=== PATIENT | female | born 1975 | race Caucasian/White ===

== ENCOUNTER 2019-07-21 12:03 | Outpatient (CLI) | payer OTHER, SELFPAY ==
--- NOTE | ~2019-07-21 | MMUS_ITS ---
EXAMINATION: MM diagnostic jolly BI w wilmer, US breast BI complete HISTORY: Follow-up breast masses TECHNIQUE: Additional 3-D tomosynthesis images of the breasts were performed and synthetic 2-D images were generated. CAD analysis was submitted and interpreted. High resolution bilateral breast ultraso und was performed. COMPARISON: Comparison to multiple prior studies sequentially, with oldest reviewed study dated 01/06. FINDINGS: MAMMOGRAPHIC FINDINGS: The breasts are heterogenously dense, which may obscure small masses. Bilateral breast asymmetries ar e not significantly changed from prior examinations dating back to 2011. No new masses, calcification s or architectural distortion are identified. ULTRASOUND: Right breast ultrasound: There are multiple simple and complicated cysts of the right breast at 1:00, 6 cm from the nipple, t here is an oval circumscribed hypoechoic mass with parallel orientation measuring 5 mm. No significan t interval vascularity or posterior features. There is a cluster of microcysts at 3:00, 3 cm from the nipple measuring up to 4 mm. At 6:00, 3 cm from the nipple, there is an irregular shaped hypoechoic mass measuring 5 x 6 x 4 mm, possibly a cluster of microcysts. No internal vascularity or posterior f eatures. At 8:00, 2 cm from the nipple, there are 2 adjacent there is an irregular shaped hypoechoic mass measuring 4 x 5 x 4 mm without internal vascularity or posterior features. At 4:00, 4 cm from th e nipple, there is an oval circumscribed hypoechoic mass measuring 4 mm without internal vascularity or posterior features. Left breast ultrasound: At 2:00, 2 cm from the nipple, there is an oval hypoechoic mass without internal vascularity or poste rior features, parallel orientation. Mass measures 5 x 3 x 3 mm. At 2:00 there is a 5 mm cyst. At 9:0 0, 5 cm from the nipple, there is an oval hypoechoic mass with echogenic hilum measuring 6 mm, likely benign intramammary lymph node. At 10:00, 3 cm from the nipple, there is a hypoechoic mass with para llel orientation measuring 4 mm, likely complicated cysts. There is a cluster of microcysts at 11:00, 2 cm from the nipple. IMPRESSION: 1. Probable benign bilateral breast masses. 2. Recommend 6 month follow-up diagnostic bilateral mammogram and ultrasound. BI-RADS category 3, probably benign findings. Reviewed, dictated and finalized at location A. IMPRESSION: 1. Probable benign bilateral breast masses. 2. Recommend 6 month follow-up diagnostic bilateral mammogram and ultrasound. BI-RADS category 3, probably benign findings.
== END 2019-07-21 12:04 | disposition home or self-care (01) ==
LOC: ANHIMG 12:10
PROVIDERS: PCP Emergency Medicine; Visit Provider Emergency Medicine
DX: R92.2 Inconclusive mammogram (principal); R92.8 Other abnormal and inconclusive findings on diagnostic imaging of breast
CPT/HCPCS: 76641; 77062; 77066; G0279

== ENCOUNTER 2020-02-10 10:13 | Outpatient (CLI) | payer OTHER, SELFPAY ==
[2020-02-10 10:57] LABS: Alanine Aminotransferase 16 U/L (4-35); Albumin Level 4.3 g/dL (3.5-5.1); Alkaline Phosphatase 85 U/L (38-126); Anion Gap 10 mmol/L (8-16); Aspartate Amino Transferase 26 U/L (14-36); Bilirubin,Total 0.5 mg/dL (0.2-1.3); Blood Urea Nitrogen 14 mg/dL (7-17); Calcium 9.2 mg/dL (8.4-10.2); Carbon Dioxide 23 mmol/L (22-30); Chloride 105 mmol/L (98-107); Estimated Glomerular Filt Rate > 60; Glucose 111 mg/dL (65-105); Potassium 4.3 mmol/L (3.4-5.0); Sodium 138 mmol/L (137-145)
[2020-02-10 11:25] LABS: Iron 109 ug/dL (37-170)
[2020-02-10 11:34] LABS: Percent Iron Saturation 30 % (20-50)
[2020-02-10 12:15] LABS: Folic Acid 9.1 ng/mL (2.76->20)
[2020-02-11 09:02] LABS: Cholesterol 241 mg/dL (0-200); HDL Direct 33 mg/dL; Triglycerides 161 mg/dL (<150)
[2020-02-11 09:09] LABS: LDL Cholesterol Direct 189 mg/dL
== END 2020-02-10 10:14 | disposition home or self-care (01) ==
PROVIDERS: PCP Physician Assistant; Visit Provider Physician Assistant
DX: F31.9 Bipolar disorder, unspecified; Z76.89 Persons encountering health services in other specified circumstances
CPT/HCPCS: 36415; 80053; 80061; 82607; 82746; 83540; 83550; 84443

== ENCOUNTER 2020-04-14 12:53 | Outpatient (CLI) | payer OTHER, SELFPAY ==
--- NOTE | ~2020-04-14 | MMUS_ITS ---
EXAMINATION: MM diagnostic jolly BI w wilmer, US breast BI complete HISTORY: Follow-up for probably benign bilateral breast masses which was due in January 2020 TECHNIQUE: Craniocaudal, mediolateral, and mediolateral oblique 3-D tomosynthesis images of the breas ts were performed and synthetic 2-D images were generated. CAD analysis was submitted and interpreted . High resolution complete breast ultrasound was performed including all four quadrants and the subar eolar aspects of both breasts. COMPARISON: 07/21/2019, 01/14/2019, 04/17/2013 BREAST PARENCHYMAL COMPOSITION: The breasts are heterogeneously dense, which may obscure small masses . FINDINGS: MAMMOGRAPHIC FINDINGS: There is no evidence of suspicious mass, calcification, or architectural distortion in either breast to suggest malignancy. There has been no suspicious interval change. ULTRASOUND: There is a 4 mm oval, circumscribed, parallel, hypoechoic mass at the 3:00 location 3 cm from the nip ple in the left breast was demonstrates decrease in size since the prior examination. No suspicious r ight breast mass is identified. IMPRESSION: 1. No mammographic or sonographic evidence of malignancy. 2. Recommend routine screening mammography in one year. BI-RADS Category 2: Benign finding(s). Reviewed, dictated and finalized at location A. PRESIDENT OF OPERATIONS IMPRESSION: 1. No mammographic or sonographic evidence of malignancy. 2. Recommend routine screening mammography in one year. BI-RADS Category 2: Benign finding(s).
== END 2020-04-14 12:54 | disposition home or self-care (01) ==
LOC: ANHIMG 12:57
PROVIDERS: PCP Physician Assistant; Visit Provider Physician Assistant
DX: R92.8 Other abnormal and inconclusive findings on diagnostic imaging of breast (principal); Z80.3 Family history of malignant neoplasm of breast
CPT/HCPCS: 76641; 77062; 77066; G0279

== ENCOUNTER 2020-07-30 19:16 | Emergency (ER) | payer OTHER, SELFPAY ==
--- NOTE | ~2020-07-30 | XR_ITS ---
EXAMINATION: XR chest 2V 07/30/2020 19:46 INDICATION: Bilateral ankle swelling. CHF. PROCEDURE: PA and lateral views of the chest COMPARISON: Comparison to multiple prior studies sequentially, with oldest reviewed study dated 04/19. FINDINGS: The lungs are clear. Pacemaker leads in expected position. The cardiomediastinal silhouette is within normal limits. There are no pleural effusions. There is no pneumothorax suspected. IMPRESSION: 1: NO ACUTE CARDIOPULMONARY DISEASE. Reviewed, dictated and finalized at location A.
[2020-07-30 19:19] VITALS: BP 114/60; PULSE 89; RESP 18; TEMP 36.2; O2SAT 100
--- NOTE | 2020-07-30 19:22 | ECG_ITS ---
Measurements Intervals Scheller Rate: 85 P: 68 GA: 150 QRS: -31 QRSD: 130 T: 67 QT: 406 QTc: 485 Interpretive Statements ATRIAL SENSE- ELECTRONIC VENTRICULAR PACEMAKER BASELINE ARTIFACT- I, II, III, AVR, AVL, AVF NO FURTHER INTERPRETATION IS POSSIBLE ATYPICAL ECG Electronically Signed On 07-31-2020 7:27:44 CDT by Ruben Snyder D.O.
[2020-07-30 20:15] LABS: Basophils Percent Auto 0.6 % (0.2-1.2); Eosinophils Absolute Auto 0.2 K/mm3 (0-0.3); Eosinophils Percent Auto 2.8 % (0-4.4); Hematocrit 39.8 % (37.0-47.0); Hemoglobin 13.2 g/dL (12.0-15.0); Immature Granulocyte Absolute 0.01 K/mm3 (0.00-0.031); Immature Granulocyte Percent A 0.1 % (0-0.5); Lymphocytes Absolute Auto 2.81 K/mm3 (0.9-3.2); Lymphocytes Percent Auto 38.8 % (18.3-44.2); Mean Corpuscular HGB Conc 33.2 g/dl (32-36); Mean Corpuscular Hemoglobin 30.3 pg (26-34); Mean Corpuscular Volume 91.5 fl (80-100); Mean Platelet Volume 10.3 fl (7.4-10.4); Monocytes Absolute Auto 0.6 K/mm3 (0.1-0.6); Monocytes Percent Auto 7.9 % (2.6-8.5); Neutrophils Absolute Auto 3.6 K/mm3 (1.3-6.7); Neutrophils Percent Auto 49.8 % (45.5-73.1); Platelet Count Result 216 k/mm3 (150-375); Red Blood Count 4.35 M/mm3 (4.2-5.4); Red Cell Distribution Width 12.5 % (11.5-14.5); White Blood Count 7.3 K/mm3 (4.5-10.0)
[2020-07-30] MEDS: FUROSEMIDE INJ 40 MG/4 ML VIAL IV PUSH (20:18)
--- NOTE | 2020-07-30 20:24 | ED.GENADULT ---
HPI - General Adult General Chief complaint: Shortness of Breath/Dyspnea Stated complaint: Hands and feet swelling, sob Time Seen by Provider: 07/30/20 19:29 History of Present Illness HPI narrative: Patient is a 45-year-old female presents to emergency department with chief complaint of peripheral edema and shortness of breath. Patient reports she has history of congestive heart failure and had an AICD placed fairly recently. The patient states that today she put a bracelet on the bracelet off and noticed that it left an imprint on her left forearm. The patient then noticed that her legs were swollen and her other extremity was swollen as well the patient noticed as she was ambulating she was started to get short of breath particular whenever she stopped walking. The patient reports has had no chest pain. The patient denies PND. Related Data Home Medications Medication Instructions Recorded Confirmed acetaminophen [Tylenol] 650 mg PO Q4H PRN 04/17/19 02/09/20 hydroxyzine HCl 50 mg PO TID PRN 04/17/19 02/09/20 lamotrigine 100 mg PO BID 04/17/19 02/09/20 cariprazine 4.5 mg capsule 4.5 mg PO DAILY 02/09/20 02/09/20 carvedilol 3.125 mg tablet 12.5 mg PO BID tablet 02/09/20 02/09/20 dextroamphetamine-amphetamine 20 20 mg PO BID 02/09/20 02/09/20 mg tablet sacubitril 49 mg-valsartan 51 mg 1 tablet PO .Q12HR tablet 02/09/20 02/09/20 tablet trazodone 50 mg tablet 50 mg PO .QHS PRN tablet 02/09/20 02/09/20 Allergies Allergy/AdvReac Type Severity Reaction Status Date / Time Penicillins Allergy Intermediate Unknown Verified 02/09/20 14:54 adhesive tape Allergy Unknown Itching Verified 02/09/20 14:54 atorvastatin Allergy Unknown generalized Verified 02/24/20 14:53 rash and itching Review of Systems Review of Systems: Narrative: A 10 system review of systems was completed on the patient and is negative except for what is stated in the HPI. Nursing and ancillary documentation was reviewed. [facility] Past Medical History Medical History Abnormal mammogram of both breasts Bipolar 1 disorder Cardiomyopathy Congestive heart failure Heart attack Heart disease Hyperlipemia Surgical History Surgical History History of History of partial hysterectomy x3 Family History Family History Father Abdominal aortic aneurysm Mother Diabetes mellitus Hypertension Cerebrovascular accident Congestive cardiac failure Bipolar 1 disorder Sibling Breast cancer Social History Social History Smoking status: Former smoker Tobacco type: e-cigarettes/vaping Second hand tobacco smoke exposure: No Alcohol intake: former Substance use: never Substance use type: does not use 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 HEAD: Normocephalic, atraumatic. EYES: PERRLA and EOMI. ENT: Nares clear, no rhinorrhea or epistaxis. Mucous membranes moist. NECK: Supple. CHEST: Clear to auscultation. No respiratory distress. HEART: Regular rate and rhythm. No murmur heard. Normal peripheral pulses. ABDOMEN: Soft, nontender, nondistended, normal active bowel sounds. EXTREMITIES: Normal range of motion. No edema. SKIN: Warm, dry, no rash. NEURO: No focal deficits. Alert and oriented x3. PSYCH: Normal mood and affect. Course Vital Signs Vital signs: Vital Signs Temperature 36.2 C L 07/30/20 19:19 Pulse Rate 89 07/30/20 19:19 Respiratory Rate 18 07/30/20 19:19 Blood Pressure 114/60 07/30/20 19:19 Pulse Oximetry
[2020-07-30 20:25] LABS: Prothrombin Time 13.8 Seconds (11.1-14.7)
[2020-07-30 20:26] LABS: Partial Thromboplastin Time 27.8 SECONDS (22.3-36.8)
[2020-07-30 20:27] LABS: Anion Gap 7 mmol/L (8-16); Blood Urea Nitrogen 11 mg/dL (7-17); Calcium 9.3 mg/dL (8.4-10.2); Carbon Dioxide 28 mmol/L (22-30); Chloride 104 mmol/L (98-107); Estimated CRCL calculation 75 ml/min; Estimated Glomerular Filt Rate > 60; Glucose 107 mg/dL (65-105); Potassium 3.9 mmol/L (3.4-5.0); Sodium 139 mmol/L (137-145)
[2020-07-30 20:38] LABS: NT Pro B Type Natriuretic Pept 82 pg/mL (5-100); Troponin I < 0.012 ng/mL (0.000-0.034)
[2020-07-30 22:18] VITALS: BP 101/75; PULSE 80; RESP 16; O2SAT 97
== END 2020-07-30 22:18 | disposition home or self-care (01) ==
PROVIDERS: Emergency Medicine; Emergency Provider Emergency Medicine; PCP Family Medicine
DX: I50.9 Heart failure, unspecified (principal); F31.9 Bipolar disorder, unspecified; I42.9 Cardiomyopathy, unspecified; I25.2 Old myocardial infarction; E78.5 Hyperlipidemia, unspecified; Z95.810 Presence of automatic (implantable) cardiac defibrillator; Z87.891 Personal history of nicotine dependence
CPT/HCPCS: 36415; 71046; 80048; 83880; 84484; 85025; 85610; 85730; 93005; 96374; 99284; J1940

== ENCOUNTER 2020-08-26 08:39 | Outpatient (CLI) | payer OTHER, SELFPAY ==
[2020-08-26 09:22] LABS: Anion Gap 5 mmol/L (8-16); Blood Urea Nitrogen 14 mg/dL (7-17); Calcium 9.3 mg/dL (8.4-10.2); Carbon Dioxide 26 mmol/L (22-30); Chloride 104 mmol/L (98-107); Estimated Glomerular Filt Rate > 60; Glucose 101 mg/dL (65-105); Potassium 4.1 mmol/L (3.4-5.0); Sodium 135 mmol/L (137-145)
[2020-08-26 09:29] LABS: Cholesterol 202 mg/dL (0-200); HDL Direct 38 mg/dL; Triglycerides 185 mg/dL (<150)
[2020-08-26 09:34] LABS: LDL Cholesterol Direct 105 mg/dL
== END 2020-08-26 08:40 | disposition home or self-care (01) ==
PROVIDERS: PCP Family Medicine; Referring Provider Nurse Practitioner Adult Health; Visit Provider Physician Assistant
DX: E78.5 Hyperlipidemia, unspecified (principal); I42.8 Other cardiomyopathies
CPT/HCPCS: 36415; 80048; 80061

== ENCOUNTER 2020-12-10 17:27 | Emergency (ER) | payer OTHER, SELFPAY ==
--- NOTE | ~2020-12-10 | XR_ITS ---
EXAMINATION: XR foot RT min 3V DATE: 12/10/2020 17:52 INDICATION: Right foot injury and pain. TECHNIQUE: 4 views of right foot were obtained. COMPARISON: None. FINDINGS: Bone alignment is normal. No fracture. There is mild osteoarthritis of first metatarsophala ngeal joint. There are enthesophytes at the posterior and plantar aspects of calcaneal tuberosity. IMPRESSION: 1. Mild osteoarthritis of first metatarsophalangeal joint. Reviewed, dictated and finalized at location A.
[2020-12-10 17:35] VITALS: BP 113/61; PULSE 78; RESP 16; TEMP 36.3; O2SAT 99
--- NOTE | 2020-12-10 18:00 | ED.LOWEXIN ---
HPI - Extremity Injury (Lower) General Chief Complaint: Extremity Injury, Lower <Rayne Lopez PA-C - Last Filed: 12/10/20 19:05> Stated Complaint: right foot pain, fall <Rayne Lopez PA-C - Last Filed: 12/10/20 19:05> Time Seen by Provider: 12/10/20 17:45 <Rayne Lopez PA-C - Last Filed: 12/10/20 19:05> Source: patient <KI Corbett Last Filed: 12/10/20 19:05> Mode of arrival: ambulatory <KI Corbett Last Filed: 12/10/20 19:05> Limitations: no limitations <Rayne Lopez PA-C - Last Filed: 12/10/20 19:05> History of Present Illness HPI Narrative: This is a 45 year old female that presents to the ER for right foot pain after an injury yesterday. Reports she tripped and fell down a couple steps. Reports since she has had right foot pain. Worse with weight bearing, relieved with rest. Denies hitting her head, other injuries, decreased ROM, numbness, or loss of consciousness. <Rayne Lopez PA-C - Last Filed: 12/10/20 19:05> Related Data Home Medications: Home Medications Medication Instructions Recorded Confirmed acetaminophen [Tylenol] 650 mg PO Q4H PRN 04/17/19 02/09/20 hydroxyzine HCl 50 mg PO TID PRN 04/17/19 02/09/20 lamotrigine 100 mg PO BID 04/17/19 02/09/20 cariprazine 4.5 mg capsule 4.5 mg PO DAILY 02/09/20 02/09/20 carvedilol 3.125 mg tablet 12.5 mg PO BID tablet 02/09/20 02/09/20 dextroamphetamine-amphetamine 20 20 mg PO BID 02/09/20 02/09/20 mg tablet sacubitril 49 mg-valsartan 51 mg 1 tablet PO .Q12HR tablet 02/09/20 02/09/20 tablet trazodone 50 mg tablet 50 mg PO .QHS PRN tablet 02/09/20 02/09/20 rosuvastatin 10 mg tablet 10 mg PO DAILY 08/27/20 <Rayne Lopez PA-C - Last Filed: 12/10/20 19:05> Allergies/Adverse Reactions: Allergies Allergy/AdvReac Type Severity Reaction Status Date / Time fenofibrate Allergy Severe Hives Verified 12/10/20 17:37 Penicillins Allergy Intermediate Unknown Verified 12/10/20 17:37 adhesive tape Allergy Unknown Itching Verified 12/10/20 17:37 atorvastatin Allergy Unknown generalized Verified 12/10/20 17:37 rash and itching <Rayne Lopez PA-C - Last Filed: 12/10/20 19:05> Review of Systems Review of Systems: CONSTITUTIONAL: Denies fever MUSCULOSKELETAL: Reports joint pain, and myalgia. NEUROLOGIC: Denies numbness, or weakness. <Rayne Lopez PA-C - Last Filed: 12/10/20 19:05> All systems reviewed & are unremarkable except as noted in HPI and below <Rayne Lopez PA-C - Last Filed: 12/10/20 19:05> [facility] Past Medical History Medical History: Medical History Abnormal mammogram of both breasts Bipolar 1 disorder Cardiomyopathy Congestive heart failure Heart attack Heart disease Hyperlipemia <Rayne Lopez PA-C - Last Filed: 12/10/20 19:05> Surgical History Surgical History: Surgical History History of History of partial hysterectomy x3 <Rayne Lopez PA-C - Last Filed: 12/10/20 19:05> Family History Family History: Family History Father Abdominal aortic aneurysm Mother Diabetes mellitus Hypertension Cerebrovascular accident Congestive cardiac failure Bipolar 1 disorder Sibling Breast cancer <Rayne Lopez PA-C - Last Filed: 12/10/20 19:05> Social History Social History: Social History Smoking status: Former smoker Tobacco type: e-cigarettes/vaping Second hand tobacco smoke exposure: No Alcohol intake: former Substance use: never Substance use type: does not use 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
--- NOTE | 2020-12-10 18:29 | PC.NURSE ---
Pt refusing crutches at this time
== END 2020-12-10 19:05 | disposition home or self-care (01) ==
PROVIDERS: Emergency Provider General Practice; PCP Family Medicine
DX: S90.31XA Contusion of right foot, initial encounter (principal); F31.9 Bipolar disorder, unspecified; I42.9 Cardiomyopathy, unspecified; I50.9 Heart failure, unspecified; I25.2 Old myocardial infarction; E78.5 Hyperlipidemia, unspecified; Z87.891 Personal history of nicotine dependence; M19.071 Primary osteoarthritis, right ankle and foot; W10.9XXA Fall (on) (from) unspecified stairs and steps, initial encounter
CPT/HCPCS: 73630; 99283

== ENCOUNTER 2021-02-27 14:39 | Emergency (ER) | payer OTHER, SELFPAY ==
[2021-02-27 14:49] VITALS: BP 100/55; PULSE 85; RESP 18; TEMP 36.3; O2SAT 100
[2021-02-27 14:50] VITALS: BP 100/55; PULSE 85; RESP 18; TEMP 36.3; O2SAT 100
--- NOTE | 2021-02-27 14:52 | ED.URI ---
HPI - URI/Sore Throat General Chief Complaint: Upper Respiratory Infection Stated Complaint: Cough,Congestion Time Seen by Provider: 02/27/21 14:52 Source: patient, RN notes reviewed and old records reviewed Mode of arrival: ambulatory Limitations: no limitations History of Present Illness HPI Narrative: 46-year-old female [facility] with complaints of cough, congestion, fatigue for 5 days. Has not taken any prwk-mlp-mcarcsy products. Reports is sick. MD elicited complaint: rhinorrhea, nasal congestion and sinus pain Related Data Home Medications Medication Instructions Recorded Confirmed hydroxyzine HCl 50 mg PO TID PRN 04/17/19 02/27/21 lamotrigine 100 mg PO BID 04/17/19 02/27/21 trazodone 50 mg tablet 50 mg PO .QHS PRN tablet 02/09/20 02/27/21 rosuvastatin 10 mg tablet 10 mg PO DAILY 08/27/20 02/27/21 dextroamphetamine-amphetamine 20 mg PO DIRECTED 02/27/21 02/27/21 Allergies Allergy/AdvReac Type Severity Reaction Status Date / Time fenofibrate Allergy Severe Hives Verified 02/27/21 14:46 Penicillins Allergy Intermediate Unknown Verified 02/27/21 14:46 adhesive tape Allergy Unknown Itching Verified 02/27/21 14:46 atorvastatin Allergy Unknown generalized Verified 02/27/21 14:46 rash and itching Review of Systems Review of Systems: All systems reviewed & are unremarkable except as noted in HPI and below Constitutional: Constitutional: Reports as per HPI, Denies chills, Reports fatigue and Denies fever(s) Eyes: Eyes: Reports no additional eye complaints ENT: Reports as per HPI and Reports nasal congestion Cardiovascular: Cardiovascular: Reports no additional cardiovascular complaints and Denies chest pain Respiratory: Respiratory: Reports as per HPI, Denies chest congestion, Reports cough, Denies dyspnea and Denies wheezing Gastrointestinal: Gastrointestinal: Reports no additional gastrointestinal complaints Musculoskeletal: Musculoskeletal: Reports no additional musculoskeletal complaints Integumentary/Breasts: Skin/Breast: Reports system reviewed and no additional complaints, except as docu Neurologic: Reports system reviewed and no additional complaints, except as documented Psychiatric: Psychiatric: Reports no additional psychiatric complaints Allergic/Immunologic: Allergic/Immunologic: Reports no additional allergic/immunologic complaints [facility] Past Medical History Medical History (Updated 02/27/21 @ 15:05 by Altagracia Cadena) Abnormal mammogram of both breasts Bipolar 1 disorder Cardiomyopathy Congestive heart failure Heart disease Hyperlipemia 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 Surgical History Surgical History History of History of partial hysterectomy x3 Family History Family History Father Abdominal aortic aneurysm Mother Diabetes mellitus Hypertension Cerebrovascular accident Congestive cardiac failure Bipolar 1 disorder Sibling Breast cancer Social History Social History Smoking status: Never smoker Tobacco type: e-cigarettes/vaping Second hand tobacco smoke exposure: No Alcohol intake: former Substance use: never Substance use type: does not use 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 There is no relevant family history pertinent to the patient complaint. Exam Const: General: healthy appearing, no acute distress and alert Nutritional Appearance: well nourished Orientation/consciousness: patie
== END 2021-02-27 15:06 | disposition home or self-care (01) ==
PROVIDERS: Emergency Provider Nurse Practitioner; PCP Family Medicine
DX: J01.40 Acute pansinusitis, unspecified (principal); E78.5 Hyperlipidemia, unspecified; I50.9 Heart failure, unspecified; F31.9 Bipolar disorder, unspecified; Z95.810 Presence of automatic (implantable) cardiac defibrillator; Z90.711 Acquired absence of uterus with remaining cervical stump
CPT/HCPCS: 99213; G0463

== ENCOUNTER 2021-04-19 08:20 | Outpatient (CLI) | payer OTHER, SELFPAY ==
--- NOTE | ~2021-04-19 | MM_ITS ---
EXAMINATION: MM screening jolly BI w wilmer HISTORY: Screening TECHNIQUE: Craniocaudal and mediolateral oblique 3-D tomosynthesis images were obtained and synthetic 2-D images were generated. CAD analysis was submitted and interpreted. COMPARISON: No prior mammogram is available for comparison at this institution. BREAST PARENCHYMAL COMPOSITION: Comparison to multiple prior studies sequentially, with oldest review ed study dated 01/17/2012. FINDINGS: There is no evidence of suspicious mass, calcification, or architectural distortion to sugg est malignancy in either breast. There has been no suspicious interval change. IMPRESSION: 1. No mammographic evidence of malignancy. 2. Recommend routine screening mammography in one year. BI-RADS Category 1: Negative Reviewed, dictated and finalized at location [facility]. [facility]
== END 2021-04-19 08:21 | disposition home or self-care (01) ==
LOC: ANHIMG 08:23
PROVIDERS: PCP Family Medicine; Visit Provider Physician Assistant
DX: Z12.31 Encounter for screening mammogram for malignant neoplasm of breast (principal)
CPT/HCPCS: 77063; 77067

== ENCOUNTER 2021-08-31 13:44 | Emergency (ER) | payer OTHER, SELFPAY ==
[2021-08-31 13:50] VITALS: BP 110/70; PULSE 83; RESP 18; TEMP 36.4; O2SAT 98
[2021-08-31 13:55] VITALS: BP 110/70; PULSE 83; RESP 18; TEMP 36.4; O2SAT 98
--- NOTE | 2021-08-31 14:00 | ED.URI ---
HPI - URI/Sore Throat General Chief Complaint: Upper Respiratory Infection Stated Complaint: uri Time Seen by Provider: 08/31/21 14:00 Source: patient and RN notes reviewed Mode of arrival: ambulatory Limitations: no limitations History of Present Illness HPI Narrative: 46-year-old female presented for complaint of sinus pressure and congestion for over 1 week. She denies associated cough, shortness of breath, wheezing, nausea, vomiting, diarrhea, fevers or chills. She has been taking Sudafed and Mucinex without relief in symptoms. Endorses has similar symptoms. She has been vaccinated for COVID and flu. MD elicited complaint: cough Related Data Home Medications Medication Instructions Recorded Confirmed hydroxyzine HCl 50 mg tablet 50 mg PO TID PRN Itching 04/17/19 02/27/21 lamotrigine 100 mg tablet 100 mg PO BID 04/17/19 02/27/21 trazodone 50 mg tablet 50 mg PO .QHS PRN sleep 02/09/20 02/27/21 rosuvastatin 10 mg tablet (Crestor) 10 mg PO DAILY 08/27/20 02/27/21 dextroamphetamine-amphetamine 20 20 mg PO DIRECTED 02/27/21 02/27/21 mg tablet cariprazine 4.5 mg capsule cap 08/31/21 (Vraylar) citalopram 10 mg tablet tablet 08/31/21 naltrexone 50 mg tablet tablet 08/31/21 Allergies Allergy/AdvReac Type Severity Reaction Status Date / Time fenofibrate Allergy Severe Hives Verified 02/27/21 14:46 Penicillins Allergy Intermediate Unknown Verified 02/27/21 14:46 adhesive tape Allergy Unknown Itching Verified 02/27/21 14:46 atorvastatin Allergy Unknown generalized Verified 02/27/21 14:46 rash and itching Review of Systems Review of Systems: CONSTITUTIONAL: Denies malaise, chills, sweats, fever EYES: Denies visual changes, redness, or discharge ENT: Reports rhinorrhea, congestion, sinus pain CARDIOVASCULAR: Denies chest pain, palpitations, edema RESPIRATORY: Denies dyspnea GASTROINTESTINAL: Denies abdominal pain, nausea, vomiting, diarrhea SKIN: Denies rash or itching MUSCULOSKELETAL: denies myalgia NEUROLOGIC: Denies headache PMFSH Past Medical History Medical History Abnormal mammogram of both breasts Bipolar 1 disorder Cardiomyopathy Congestive heart failure Heart disease Hyperlipemia 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 Surgical History Surgical History History of History of partial hysterectomy x3 Family History Family History Father Abdominal aortic aneurysm Mother Diabetes mellitus Hypertension Cerebrovascular accident Congestive cardiac failure Bipolar 1 disorder Sibling Breast cancer Social History Social History Smoking status: Never smoker Tobacco type: e-cigarettes/vaping Second hand tobacco smoke exposure: No Alcohol intake: former Substance use: never Substance use type: does not use 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 TM pearly mclain with dull light reflex bilaterally; no tragal tenderness. Oropharynx erythematous without lesions or exudate, no drooling, no hoarseness, no trismus, uvula midline. NECK: Supple. No lymphadenopathy CHEST: Clear to auscultation, breath sounds equal. HEART: Regular rate and rhythm. No murmur heard. SKIN: Warm, dry, no rash. NEURO: Alert and oriented x3. PSYCH: Normal mood and affect Course Course Emergency Course: Patient is aware of diagnosis, understands and agrees to treatment plan. Anticip
== END 2021-08-31 14:19 | disposition home or self-care (01) ==
PROVIDERS: Emergency Provider Nurse Practitioner Family; PCP Family Medicine
DX: J06.9 Acute upper respiratory infection, unspecified (principal); F17.290 Nicotine dependence, other tobacco product, uncomplicated; F31.9 Bipolar disorder, unspecified; I50.9 Heart failure, unspecified; Z95.810 Presence of automatic (implantable) cardiac defibrillator; E78.5 Hyperlipidemia, unspecified; Z90.711 Acquired absence of uterus with remaining cervical stump
CPT/HCPCS: 99213; G0463

== ENCOUNTER 2021-11-23 08:15 | Outpatient (CLI) | payer OTHER, SELFPAY ==
[2021-11-23 08:54] LABS: Hematocrit 37.3 % (37.0-47.0); Hemoglobin 12.3 g/dL (12.0-15.0); Mean Corpuscular Hemoglobin 30.3 pg (26-34); Mean Corpuscular Volume 91.9 fl (80-100); Mean Platelet Volume 10.6 fl (7.4-10.4); Platelet Count Result 167 k/mm3 (150-375); Red Blood Count 4.06 M/mm3 (4.2-5.4); Red Cell Distribution Width 12.5 % (11.5-14.5); White Blood Count 5.2 K/mm3 (4.5-10.0)
[2021-11-23 09:09] LABS: Alanine Aminotransferase 16 U/L (6-35); Albumin Level 3.8 g/dL (3.5-5.1); Alkaline Phosphatase 93 U/L (38-126); Anion Gap 7 mmol/L (8-16); Aspartate Amino Transferase 21 U/L (14-36); Bilirubin,Total 0.3 mg/dL (0.2-1.3); Blood Urea Nitrogen 10 mg/dL (7-17); Calcium 8.9 mg/dL (8.4-10.2); Carbon Dioxide 23 mmol/L (22-30); Chloride 105 mmol/L (98-107); Cholesterol 171 mg/dL (0-200); Creatine Kinase 33 U/L (30-135); Estimated Glomerular Filt Rate > 60; Glucose 108 mg/dL (65-110); HDL Direct 38 mg/dL; Potassium 4.2 mmol/L (3.4-5.0); Sodium 135 mmol/L (137-145); Triglycerides 236 mg/dL (<150)
[2021-11-23 09:19] LABS: LDL Cholesterol Direct 85 mg/dL
[2021-11-23 09:54] LABS: Free T4 Free Thyroxine 1.32 ng/mL (0.78-2.19)
== END 2021-11-23 08:16 | disposition home or self-care (01) ==
LOC: ANHLAB 08:17
PROVIDERS: PCP Family Medicine; Visit Provider Physician Assistant
DX: Z13.1 Encounter for screening for diabetes mellitus (principal); Z13.220 Encounter for screening for lipoid disorders; E03.9 Hypothyroidism, unspecified; D64.9 Anemia, unspecified; M79.10 Myalgia, unspecified site
CPT/HCPCS: 36415; 80053; 80061; 82550; 84439; 84443; 85027

== ENCOUNTER 2021-12-05 07:57 | Outpatient (CLI) | payer OTHER, SELFPAY ==
--- NOTE | ~2021-12-05 | US_ITS ---
EXAMINATION: US arterial ankle brachial ind DATE: 12/05/2021 08:35 INDICATION: Lower limb claudication. TECHNIQUE: Segmental pressures and plethysmographic and Doppler waveforms of the brachial and lower e xtremity arteries were obtained. COMPARISON: None. FINDINGS: Right and left brachial artery pressures of 89 mm Hg and 99 mm Hg, respectively, are concordant (norm al difference <= 30 mmHg). The right ankle-brachial index (SHAKEEL) is 0.90 (normal >= 0.9-1.0). The right great toe-brachial index (TBI) is 0.57 (normal >= 0.65). Arterial Doppler waveforms are biphasic with brisk systolic upstrokes at both right posterior tibial and dorsalis pedis arteries. The left SHAKEEL is 0.90. The left TBI is 0.54. Arterial Doppler waveforms are biphasic with brisk systol ic upstrokes at both left posterior tibial and dorsalis pedis arteries. IMPRESSION: 1. Arterial occlusive disease to bilateral lower limbs with borderline decreased bilateral ABIs and m ildly decreased bilateral TBIs. Reviewed, dictated and finalized at location A. IMPRESSION: 1. Arterial occlusive disease to bilateral lower limbs with borderline decrease d bilateral ABIs and mildly decreased bilateral TBIs.
== END 2021-12-05 07:58 | disposition home or self-care (01) ==
LOC: ANHIMG 07:58
PROVIDERS: PCP Family Medicine; Visit Provider Physician Assistant
DX: R09.89 Other specified symptoms and signs involving the circulatory and respiratory systems (principal); I73.9 Peripheral vascular disease, unspecified
CPT/HCPCS: 93922

== ENCOUNTER 2022-01-22 11:28 | Emergency (ER) | payer OTHER, SELFPAY ==
--- NOTE | ~2022-01-22 | CT_ITS ---
EXAMINATION: CT abdomen pelvis w con INDICATION: Right-sided abdominal pain TECHNIQUE: Computed tomographic images of the abdomen and pelvis were obtained after the administrati on of 100 cc of Omnipaque 350 intravenous contrast. The dose-length product (DLP) was 1184.11 mGy-cm. Automated exposure control and iterative reconstruction technique were employed. COMPARISON: None available FINDINGS: There is a 3 mm nodule of the left lower lobe. Three pacemaker leads are noted in the heart . The liver, spleen, pancreas, and adrenal glands are normal. There is wall thickening of the gallbla dder with mild pericholecystic inflammatory change. The kidneys are unremarkable. There is calcified atherosclerosis of the aorta and many of the other arteries. No pathologically enlarged abdominal or pelvic lymph nodes are identified. The appendix is normal. There is no free intraperitoneal gas or ev idence of bowel obstruction. There is moderate lumbar spondylosis at L5-S1. IMPRESSION: 1. Gallbladder wall thickening and mild pericholecystic inflammatory change which could reflect latasha cystitis. Reviewed, dictated and finalized at location A. IMPRESSION: 1. Gallbladder wall thickening and mild pericholecystic inflammatory change whi ch could reflect cholecystitis.
[2022-01-22 11:34] VITALS: BP 136/61; PULSE 72; RESP 18; TEMP 36.2; O2SAT 99
[2022-01-22 12:28] LABS: Basophils Percent Auto 0.6 % (0.2-1.2); Eosinophils Absolute Auto 0.2 K/mm3 (0-0.3); Eosinophils Percent Auto 3.8 % (0-4.4); Hematocrit 40.7 % (37.0-47.0); Hemoglobin 13.2 g/dL (12.0-15.0); Immature Granulocyte Absolute 0.01 K/mm3 (0.00-0.031); Immature Granulocyte Percent A 0.2 % (0-0.5); Lymphocytes Absolute Auto 1.54 K/mm3 (0.9-3.2); Lymphocytes Percent Auto 31.2 % (18.3-44.2); Mean Corpuscular HGB Conc 32.4 g/dl (32-36); Mean Corpuscular Hemoglobin 29.3 pg (26-34); Mean Corpuscular Volume 90.4 fl (80-100); Mean Platelet Volume 10.3 fl (7.4-10.4); Monocytes Absolute Auto 0.4 K/mm3 (0.1-0.6); Monocytes Percent Auto 8.7 % (2.6-8.5); Neutrophils Absolute Auto 2.7 K/mm3 (1.3-6.7); Neutrophils Percent Auto 55.5 % (45.5-73.1); Platelet Count Result 182 k/mm3 (150-375); Red Cell Distribution Width 12.3 % (11.5-14.5); White Blood Count 4.9 K/mm3 (4.5-10.0)
[2022-01-22 12:38] LABS: Alanine Aminotransferase 21 U/L (6-35); Albumin Level 4.2 g/dL (3.5-5.1); Alkaline Phosphatase 95 U/L (38-126); Anion Gap 7 mmol/L (8-16); Aspartate Amino Transferase 23 U/L (14-36); Bilirubin,Total 0.3 mg/dL (0.2-1.3); Blood Urea Nitrogen 11 mg/dL (7-17); Calcium 8.7 mg/dL (8.4-10.2); Carbon Dioxide 23 mmol/L (22-30); Chloride 106 mmol/L (98-107); Estimated CRCL calculation 79 ml/min; Estimated Glomerular Filt Rate > 60; Glucose 115 mg/dL (65-110); Lipase 99 U/L (23-300); Potassium 4.1 mmol/L (3.4-5.0); Sodium 136 mmol/L (137-145)
[2022-01-22 12:49] LABS: Add Urine Microscopic? YES; Appearance Urine Cloudy (Clear); Bilirubin Urine Negative (Negative); Blood Urine Negative (Negative); Color Urine Yellow (Yellow); Glucose Urine UA Negative (Negative); Ketones Urine Negative (Negative); Leukocyte Esterase Ur Negative LEU/UL (Negative); Nitrate Urine Negative (Negative); Protein Urine Negative (Negative); Specific Grav Ur 1.017 (1.001-1.035); Squamous Epithelial Cell Urine Many /hpf (Few); Urobilinogen Urine Negative mg/dL (<2.0); WBC Urine 0-3 /hpf
--- NOTE | 2022-01-22 13:29 | ED.ABDPAIN ---
HPI - Abdominal Pain General Chief Complaint: Abdominal Pain Stated Complaint: right sided abd pain for a couple weeks Time Seen by Provider: 01/22/22 13:29 Source: patient History of Present Illness HPI narrative: 46 years old white female drove herself to the emergency room, complaining of right lower quadrant pain started 2 weeks ago, constant, dull aching, denies aggravating factors, gets better with urination. She denies any fever, chills, nausea, vomiting, radiation of pain. History of cardiomyopathy. Hysterectomy and section x3 Related Data Home Medications Medication Instructions Recorded Confirmed rosuvastatin 10 mg tablet (Crestor) 10 mg PO DAILY 08/27/20 11/20/21 dextroamphetamine-amphetamine 20 20 mg PO DIRECTED 02/27/21 11/20/21 mg tablet cariprazine 4.5 mg capsule 4.5 mg PO DAILY 11/20/21 11/20/21 (Vraylar) carvedilol 12.5 mg tablet 12.5 mg PO Q12H 11/20/21 11/20/21 citalopram 20 mg tablet 60 mg PO DAILY 11/20/21 11/20/21 furosemide 20 mg tablet (Lasix) 20 mg PO BID 11/20/21 11/20/21 gabapentin 600 mg tablet 600 mg PO TID 11/20/21 11/20/21 hydroxyzine HCl 50 mg tablet 50 mg PO QID Itching 11/20/21 11/20/21 methocarbamol 500 mg tablet 500 mg PO QID 11/20/21 11/20/21 sacubitril 97 mg-valsartan 103 mg 1 tablet PO BID 11/20/21 11/20/21 tablet (Entresto) trazodone 50 mg tablet 150 mg PO .QHS PRN sleep 11/20/21 11/20/21 Allergies Allergy/AdvReac Type Severity Reaction Status Date / Time fenofibrate Allergy Severe Hives Verified 11/20/21 10:23 Penicillins Allergy Intermediate Unknown Verified 11/20/21 10:23 adhesive tape Allergy Unknown Itching Verified 11/20/21 10:23 atorvastatin Allergy Unknown generalized Verified 11/20/21 10:23 rash and itching Review of Systems Review of Systems: All systems reviewed & are unremarkable except as noted in HPI and below PMFSH Past Medical History Medical History Abnormal mammogram of both breasts Bipolar 1 disorder Cardiomyopathy Congestive heart failure Hyperlipemia Hypothyroidism 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 Surgical History Surgical History History of History of partial hysterectomy x3 Family History Family History Father Abdominal aortic aneurysm Mother Diabetes mellitus Hypertension Cerebrovascular accident Congestive cardiac failure Bipolar 1 disorder Sibling Breast cancer Social History Social History Smoking status: Never smoker Tobacco type: e-cigarettes/vaping Second hand tobacco smoke exposure: No Alcohol intake: former Substance use: never Substance use type: does not use 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 Gender identity (if verbalized by the patient): Female Sexual Orientation (if Verbalized by the Patient): Straight or Heterosexual Spiritual care concerns: Yes (Methodist) Agree to blood products: Yes Exam Narrative: General appearance: Well-developed, well-nourished Skin: Normal color Head: Normocephalic, nontraumatic Eyes: Clear conjunctiva ENT: Oropharynx normal, ears normal, nose normal Neck: Supple, nontender Chest and respiratory: Airway patent, no respiratory distress, no accessory muscle use Heart: Regular rate/rhythm Abdomen: Soft, moderate tenderness right lower quadrant no guarding or rebound, negative Padilla sign no organomegaly, quiet bowel sounds Vascular: Normal peripheral pulses, normal capillary refill. Musculoskeletal: Normal range of motion, nontender back Neurologic: Alert and oriented ?3, SYSTEMS ANALYST DEVELOPER is normal as tested, no gross motor deficit
[2022-01-22 13:30] VITALS: BP 122/78; PULSE 78; RESP 18; O2SAT 98
[2022-01-22 14:02] VITALS: BP 113/69; PULSE 78; RESP 18
[2022-01-22] MEDS: SODIUM CHLORIDE 0.9% IV 1,000 ML 999 ML IV CONT (14:02)
[2022-01-22] MEDS: ONDANSETRON INJ 4 MG/2 ML VIAL IV PUSH (14:03)
[2022-01-22] MEDS: HYDROmorphone HCL INJ (*CRX) 1 MG/ML SYR 0.5 MG IV PUSH (14:03)
[2022-01-22 16:11] VITALS: BP 122/68; PULSE 78; RESP 18; O2SAT 99
== END 2022-01-22 16:12 | disposition home or self-care (01) ==
PROVIDERS: Emergency Medicine; Emergency Provider Emergency Medicine; PCP Family Medicine
DX: R10.31 Right lower quadrant pain (principal); E78.5 Hyperlipidemia, unspecified; I42.9 Cardiomyopathy, unspecified; I50.9 Heart failure, unspecified; E03.9 Hypothyroidism, unspecified; F31.9 Bipolar disorder, unspecified; Z95.810 Presence of automatic (implantable) cardiac defibrillator; Z90.711 Acquired absence of uterus with remaining cervical stump; F17.290 Nicotine dependence, other tobacco product, uncomplicated; R93.2 Abnormal findings on diagnostic imaging of liver and biliary tract
CPT/HCPCS: 36415; 74177; 80053; 81001; 83690; 85025; 96361; 96374; 96375; 99284; J1170; J2405; J7030; Q9967

== ENCOUNTER 2022-02-11 05:20 | Emergency (ER) | payer OTHER, SELFPAY ==
[2022-02-11] VITALS (9 sets, daily range): BP systolic 101–145; BP diastolic 54–88; PULSE 79–88; RESP 14–17; TEMP 36.8; O2SAT 92–99
--- NOTE | ~2022-02-11 | US_ITS ---
US abdomen limited DATE: 02/11/2022 09:50 INDICATION: Right-sided abdominal pain. Cholecystitis. TECHNIQUE: Real-time imaging of liver, pancreas, gallbladder COMPARISON: 01/22/2022 CT abdomen pelvis FINDINGS: No hepatic or pancreatic space-occupying mass lesion is detected. Normal hepatopedal portal venous flow direction. There is gallbladder wall thickening, measuring up to 5 mm thickness. There are filling defects with shadowing within the gallbladder, consistent with cholelithiasis. The common bile duct measures 4 mm, within normal limits. IMPRESSION: Cholelithiasis and gallbladder wall thickening. Findings may be consistent with acute cho lecystitis versus chronic cholecystitis. Radionuclide hepatobiliary scan may be helpful for diagnosis of acute cholecystitis and cystic duct o cclusion if clinically desired Reviewed, dictated and finalized at [facility]. Reviewed, dictated and finalized at location A. ODIAL SUPERVISOR IMPRESSION: Cholelithiasis and gallbladder wall thickening. Findings may be con sistent with acute cholecystitis versus chronic cholecystitis. Radionuclide hepatobiliary scan may be helpful for diagnosis of acute cholecyst itis and cystic duct occlusion if clinically desired
[2022-02-11] MEDS: SODIUM CHLORIDE 0.9% IV 1,000 ML 999 ML IV CONT (06:24)
[2022-02-11] MEDS: HYDROmorphone HCL INJ (*CRX) 1 MG/ML SYR 0.5 MG IV PUSH ×2 (06:24→11:50)
--- NOTE | 2022-02-11 06:24 | ED.GENADULT ---
HPI - General Adult General Chief complaint: Abdominal Pain <Cristian Esparza MD - Last Filed: 02/11/22 06:29> Stated complaint: abdominal pain <Cristian Esparza MD - Last Filed: 02/11/22 06:29> Time Seen by Provider: 02/11/22 05:54 <Cristian Esparza MD - Last Filed: 02/11/22 06:29> History of Present Illness HPI narrative: This is a 47-year-old female presenting ED with abdominal pain. She has been having for right upper quadrant abdominal pain for the last 2 weeks. pains got acutely worse over the last 3-4 days and is now across the entirety of her upper abdomen. She describes it as a sharp pain that is 10/10 intensity. The pain is always there but fluctuates in intensity throughout the day. She has never experienced this pain for the last 2 weeks and there are no exacerbating or alleviating factors. She has taken Tylenol and Pepto-Bismol with no relief. She has had 1 episode of nausea and vomiting this morning. She has also had several episodes of diarrhea. She denies fever or chills. She has been seen here in the emergency department on 01/[address] where she had a CT that was concerning for cholecystitis. She has followed up with Dr. Gallagher who is pursuing a HIDA scan and right upper quadrant ultrasound. <Cristian Esparza MD - Last Filed: 02/11/22 06:29> Related Data Home medications: Home Medications Medication Instructions Recorded Confirmed rosuvastatin 10 mg tablet (Crestor) 10 mg PO DAILY 08/27/20 02/09/22 dextroamphetamine-amphetamine 20 20 mg PO DIRECTED 02/27/21 02/09/22 mg tablet cariprazine 4.5 mg capsule 4.5 mg PO DAILY 11/20/21 02/09/22 (Vraylar) carvedilol 12.5 mg tablet 12.5 mg PO Q12H 11/20/21 02/09/22 citalopram 20 mg tablet 60 mg PO DAILY 11/20/21 02/09/22 furosemide 20 mg tablet (Lasix) 20 mg PO BID 11/20/21 02/09/22 gabapentin 600 mg tablet 600 mg PO TID 11/20/21 02/09/22 hydroxyzine HCl 50 mg tablet 50 mg PO QID Itching 11/20/21 02/09/22 methocarbamol 500 mg tablet 500 mg PO QID 11/20/21 02/09/22 sacubitril 97 mg-valsartan 103 mg 1 tablet PO BID 11/20/21 02/09/22 tablet (Entresto) trazodone 50 mg tablet 150 mg PO .QHS PRN sleep 11/20/21 02/09/22 <Cristian Esparza MD - Last Filed: 02/11/22 06:29> Allergies/adverse reactions: Allergies Allergy/AdvReac Type Severity Reaction Status Date / Time fenofibrate Allergy Severe Hives Verified 02/11/22 05:41 Penicillins Allergy Intermediate Swelling Verified 02/11/22 05:41 adhesive tape Allergy Unknown Itching Verified 02/11/22 05:41 atorvastatin Allergy Unknown generalized Verified 02/11/22 05:41 rash and itching <Cristian Esparza MD - Last Filed: 02/11/22 06:29> Review of Systems Review of Systems: CONSTITUTIONAL: Denies night sweats. EYES: No eye pain ENT: Denies rhinorrhea CARDIOVASCULAR: Denies palpitations RESPIRATORY: Denies hemoptysis GASTROINTESTINAL: Denies hematemesis GENITOURINARY: Denies hematuria. SKIN: Denies rash MUSCULOSKELETAL: Denies myalgia. NEUROLOGIC: Denies weakness. PSYCHIATRIC: Denies delusions <Cristian Esparza MD - Last Filed: 02/11/22 06:29> [facility] Past Medical History Medical History: Medical History Abnormal mammogram of both breasts Bipolar 1 disorder Cardiomyopathy Congestive heart failure History of heart attack Hyperlipemia Hypothyroidism 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 <Cristian Esparza MD - Last Filed: 02/11/22 06:29> Surgical History Surgical History: Surgical History History of History of partial hysterectomy x3 Pacemaker <Cristian Esparza MD - Last Filed: 02/11/22 06:29> Family History Family History: Family History Father Abdominal aortic aneurysm Mother , age 72 Diabetes mellitus Hypertension Cerebrovascul
[2022-02-11 06:47] LABS: Alanine Aminotransferase 15 U/L (6-35); Albumin Level 4.3 g/dL (3.5-5.1); Alkaline Phosphatase 94 U/L (38-126); Anion Gap 12 mmol/L (8-16); Aspartate Amino Transferase 27 U/L (14-36); Bilirubin,Total 0.7 mg/dL (0.2-1.3); Blood Urea Nitrogen 13 mg/dL (7-17); Calcium 8.6 mg/dL (8.4-10.2); Carbon Dioxide 22 mmol/L (22-30); Chloride 101 mmol/L (98-107); Estimated CRCL calculation 103 ml/min; Estimated Glomerular Filt Rate > 60; Glucose 123 mg/dL (65-110); Lipase 39 U/L (23-300); Potassium 4.5 mmol/L (3.4-5.0); Sodium 135 mmol/L (137-145)
[2022-02-11 07:34] LABS: Basophils Percent Auto 0.3 % (0.2-1.2); Eosinophils Absolute Auto 0.2 K/mm3 (0-0.3); Hemoglobin 12.5 g/dL (12.0-15.0); Immature Granulocyte Absolute 0.02 K/mm3 (0.00-0.031); Immature Granulocyte Percent A 0.2 % (0-0.5); Lymphocytes Absolute Auto 1.13 K/mm3 (0.9-3.2); Lymphocytes Percent Auto 12.2 % (18.3-44.2); Mean Corpuscular HGB Conc 32.9 g/dl (32-36); Mean Corpuscular Hemoglobin 29.1 pg (26-34); Mean Corpuscular Volume 88.6 fl (80-100); Mean Platelet Volume 9.8 fl (7.4-10.4); Monocytes Absolute Auto 0.7 K/mm3 (0.1-0.6); Monocytes Percent Auto 7.2 % (2.6-8.5); Neutrophils Absolute Auto 7.2 K/mm3 (1.3-6.7); Neutrophils Percent Auto 78.1 % (45.5-73.1); Platelet Count Result 198 k/mm3 (150-375); Red Blood Count 4.29 M/mm3 (4.2-5.4); Red Cell Distribution Width 12.3 % (11.5-14.5); White Blood Count 9.3 K/mm3 (4.5-10.0)
--- NOTE | 2022-02-11 08:15 | PC.NURSE ---
Pt to U/S via w/c at this time.
[2022-02-11] MEDS: ONDANSETRON INJ 4 MG/2 ML VIAL IV PUSH (11:50)
[2022-02-11 12:32] LABS: SARS-CoV-2 RNA PCR Negative
== END 2022-02-11 12:41 | disposition home or self-care (01) ==
PROVIDERS: Emergency Medicine; Emergency Provider Emergency Medicine; PCP Family Medicine
DX: K81.2 Acute cholecystitis with chronic cholecystitis (principal); Z20.822 Contact with and (suspected) exposure to COVID-19; I42.9 Cardiomyopathy, unspecified; I50.9 Heart failure, unspecified; I25.2 Old myocardial infarction; E78.5 Hyperlipidemia, unspecified; E03.9 Hypothyroidism, unspecified; Z90.711 Acquired absence of uterus with remaining cervical stump; Z95.810 Presence of automatic (implantable) cardiac defibrillator; F17.290 Nicotine dependence, other tobacco product, uncomplicated
CPT/HCPCS: 36415; 76705; 80053; 83690; 85025; 96361; 96374; 96375; 96376; 99284; J1170; J2405; J7030; U0003; U0005

== ENCOUNTER 2022-02-14 10:01 | Outpatient (CLI) | payer OTHER, SELFPAY ==
--- NOTE | 2022-02-14 10:17 | ECG_ITS ---
Measurements Intervals [place] Rate: 77 P: 71 MO: 180 QRS: -46 QRSD: 102 T: 79 QT: 388 QTc: 439 Interpretive Statements ATRIAL SENSE- ELECTRONIC VENTRICULAR PACEMAKER BASELINE ARTIFACT- II, III, AVF NO FURTHER INTERPRETATION IS POSSIBLE ATYPICAL ECG COMPARED TO ECG 07/30/2020 19:26:41 NO SIGNIFICANT CHANGES Electronically Signed On 02-14-2022 10:49:32 TIMBER SPOTTER by Ruben Snyder D.O.
[2022-02-14 11:10] LABS: Alanine Aminotransferase 22 U/L (6-35); Alkaline Phosphatase 126 U/L (38-126); Amylase 54 U/L (30-110); Aspartate Amino Transferase 26 U/L (14-36); Bilirubin,Total 0.4 mg/dL (0.2-1.3); Lipase 53 U/L (23-300)
== END 2022-02-14 10:02 | disposition home or self-care (01) ==
LOC: ANHSURGERY 10:08
PROVIDERS: PCP Family Medicine; Visit Provider Surgery
DX: I50.9 Heart failure, unspecified (principal); I42.9 Cardiomyopathy, unspecified; K81.9 Cholecystitis, unspecified; R94.31 Abnormal electrocardiogram [ECG] [EKG]
CPT/HCPCS: 36415; 80076; 82150; 83690; 86850; 86900; 86901; 93005

== ENCOUNTER 2022-02-16 02:08 | Day surgery (SDC) | payer OTHER, SELFPAY ==
[2022-02-12 15:38] VITALS: BMI 35.6
--- NOTE | 2022-02-12 15:44 | PC.NURSE ---
Report to the Outpatient Waiting Room, entrance under the green pavilion located off [facility], at time 11:30 on date 02/16/22. Planned Procedure Time: 1:30. Time changes happen often and if your time is changed the preop area will call you the afternoon before. - You and your visitor will be asked to self-screen and do not enter if you have any COVID symptoms. - We encourage only one visitor and NO visitors under age 16 are allowed at this time. Your visitor will receive communication by the phone number that is given day of service. - The patient visitor is requested to social distance or may leave the building when not with patient due to restrictions. - A mask is OPTIONAL within the hospital. Patients may have clear liquids (water, carbonated beverages, clear teas, apple juice) until 3 hours prior to surgery (10:30) with a maximum of 20 ounces. - No food from midnight until time of surgery Take the following medications with a SIP of water the morning of surgery: CARIPRAZINE, CARVEDILOL, CITALOPRAM, GABAPENTIN, HYDROXYZINE, LEVOTHYROXINE, METHOCARBAMOL, PAIN PILL IF NEEDED Medications to discontinue per physician: N/A Date to take last dose: N/A Please no make-up, nail [place], hairspray, perfume, deodorant, or body powder the day of surgery. No jewelry (including any body piercings) or valuables the day of surgery, leave them at home. Please take a shower or bath the night before, or the morning of, surgery with an antibacterial soap (HIBICLENS). Wear comfortable, loose fitting clothing. - Jewelry must be removed prior to entering the operating room. Rings and piercings that are not removed may be cut off. - The hospital will not accept responsibility for valuables. - Please leave all valuables, including medications, at home the day of surgery. If you are going home after surgery, a licensed telephone directory distributor driver must drive you home. - NO public transportation without another adult. - We recommend that an adult stay with you for 24 hours following discharge. - We also recommend that you do not drive, make important decision, drink alcoholic beverages, or take any drugs that were not prescribed by your health care provider for at least 24 hours after your discharge time. Follow any additional instructions given to you from your surgeon. If you or anyone in your household have experienced Covid symptoms in the past week, please notify your surgeon or the nurse liaison at the phone number below for possible testing. Telephone instructions given to KAREN ORTIZ and asked if any additional questions and then verbalized understanding. Patient advised to call surgeon office or pre surgery nurse liaison [phone] if any additional questions.
[2022-02-16] VITALS (8 sets, daily range): BP systolic 90–114; BP diastolic 45–61; PULSE 63–88; RESP 12–18; TEMP 36.3–37; O2SAT 94–100
--- NOTE | 2022-02-16 11:32 | WPDHPUPDATE1 ---
History and Physical Update Update Date/Time: 02/16/22 11:32 History and Physical has been reviewed, including an updated exam of the patient. There are NO changes in the patient's condition. Risks, benefits, and alternatives have been discussed and questions answered. Patient agrees to proceed with procedure.
--- NOTE | 2022-02-16 11:36 | WPDHPUPDATE1 ---
History and Physical Update Update Date/Time: 02/16/22 11:36 History and Physical has been reviewed, including an updated exam of the patient. There are NO changes in the patient's condition. Risks, benefits, and alternatives have been discussed and questions answered. Patient agrees to proceed with procedure.
--- NOTE | 2022-02-16 11:58 | WPDANESEPPF ---
Anes - Initial Pre Proc Eval Procedure: Operation Date: 02/16/22 13:30 Proposed Procedures p Laparoscopic Cholecystectomy - Clark Gallagher MD Date/Time: 02/16/22 11:58 Surgeon: Clark Gallagher MD Pre Op Diagnosis: Acute and Chronic Cholecystitis Patient Data Age: 47 Gender: F Height: 1.6 m Weight: 91.17 kg Allergies Allergy/AdvReac Type Severity Reaction Status Date / Time fenofibrate Allergy Severe Hives Verified 02/12/22 15:36 Penicillins Allergy Intermediate Swelling Verified 02/12/22 15:36 adhesive tape Allergy Unknown Itching Verified 02/12/22 15:36 atorvastatin Allergy Unknown generalized Verified 02/12/22 15:36 rash and itching Home Medications Medication Instructions Recorded Confirmed Type rosuvastatin 10 mg tablet (Crestor) 10 mg PO DAILY 08/27/20 02/12/22 History dextroamphetamine-amphetamine 20 20 mg PO DIRECTED 02/27/21 02/12/22 History mg tablet cariprazine 4.5 mg capsule 4.5 mg PO DAILY 11/20/21 02/12/22 History (Vraylar) carvedilol 12.5 mg tablet 12.5 mg PO Q12H 11/20/21 02/12/22 History citalopram 20 mg tablet 60 mg PO DAILY 11/20/21 02/12/22 History furosemide 20 mg tablet (Lasix) 20 mg PO BID 11/20/21 02/12/22 History gabapentin 600 mg tablet 600 mg PO TID 11/20/21 02/12/22 History hydroxyzine HCl 50 mg tablet 50 mg PO QID Itching 11/20/21 02/12/22 History methocarbamol 500 mg tablet 500 mg PO QID 11/20/21 02/12/22 History sacubitril 97 mg-valsartan 103 mg 1 tablet PO BID 11/20/21 02/12/22 History tablet (Entresto) trazodone 50 mg tablet 150 mg PO .QHS PRN sleep 11/20/21 02/12/22 History estradiol 1 mg tablet (Estrace) 1 mg PO DAILY #90 tabs 11/27/21 02/12/22 Rx levothyroxine 75 mcg tablet 75 mcg PO DAILY #90 tabs 12/06/21 02/12/22 Rx hydrocodone 5 mg-acetaminophen 325 1 tablet PO Q4H #20 tabs 02/11/22 02/12/22 Rx mg tablet ondansetron HCl 4 mg tablet 4 mg PO Q4H 3 doses #10 tabs 02/11/22 02/12/22 Rx Patient hx anesthesia problems: none Family hx anesthesia problems: none Results Review: All pre-operative results and documents have been reviewed as part of the pre-operative evaluation. [facility], [facility] Past Medical History Medical History Abnormal mammogram of both breasts Bipolar 1 disorder Cardiomyopathy Congestive heart failure History of heart attack Hyperlipemia Hypothyroidism 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 Surgical History Surgical History History of History of partial hysterectomy x3 Pacemaker Family History Family History Father Abdominal aortic aneurysm Mother , age 72 Diabetes mellitus Hypertension Cerebrovascular accident Congestive cardiac failure Bipolar 1 disorder Sibling Breast cancer Social History Social History Smoking status: Current every day smoker Tobacco type: e-cigarettes/vaping Second hand tobacco smoke exposure: No Alcohol intake: former Substance use: never Substance use type: does not use Living arrangements: with family 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 Gender identity (if verbalized by the patient): Female Sexual Orientation (if Verbalized by the Patient): Straight or Heterosexual Spiritual care concerns: Yes (Gnosticism) Agree to blood products: Yes Anes - Eval Final PreProcedure Day of Procedure 02/16/22 11:58 Patient weight: obese Heart: regular rate and rhythm Lungs: decreased breath sounds Airway: Mallampati scale class II Neurological: alert and oriented Last oral intake: >/= 8 hours ASA classification: IV Emergent: no Anesthetic plan: proceed Anesthesia type and monitoring: general ETT and standard monitoring Results Review: All pre-operative results and documents have
[2022-02-16] MEDS: LACTATED RINGERS 1,000 ML 30 ML IV CONT (12:00)
--- NOTE | 2022-02-16 12:09 | W.PM.PROC2 ---
Procedure Note - Detailed Date of Procedure 02/16/22 Pre-op Diagnosis Acute and Chronic Cholecystitis, cholelithiasis Post-op Diagnosis Same Procedure Performed Laparoscopic cholecystectomy Surgeon Clark Gallagher MD Forest Worker Dianna Gill [facility] Anesthesia General and Local (0.25% Marcaine with epinephrine) Indications Patient has had several episodes of right-sided abdominal pain. Initially they were in the right lower quadrant and diagnosis was somewhat difficult. She was in the emergency room again 5 days ago with excruciating right upper quadrant pain. An ultrasound has been done and showed gallstones with gallbladder wall thickening consistent with acute on chronic cholecystitis. She is taken to surgery now for laparoscopic cholecystectomy. Findings Severe acute inflammation with edema as well as chronic scarring. There was hypervascularity. There was no biliary ductal dilatation or liver abnormalities.Gallbladder was thickened and packed with large stones. Description of Procedure The patient was taken to surgery and induced into general anesthesia. The abdomen is prepped and draped. Trocars were placed in usual fashion using applied Medical optical trocars and local anesthetic. The gallbladder was distended and inflamed. There were maney adhesions to the gallbladder. These adhesions were taken down with sharp dissection and cautery. The surgery was very bloody due to the inflammation and hypervascularity. The gallbladder was very thickened and full. It was difficult to grasp. We then used a laparoscopic aspirator and decompressed the gallbladder. The gallbladder was still very hard and nearly impossible to grasp. The gallbladder was then retracted anterosuperiorly. Dissection was carried out in the cholecystohepatic triangle. Dissection was bloody and very difficult. The cystic duct and cystic artery were dissected out very clearly. Critical view was achieved. I then securely clipped and divided the cystic duct and cystic artery. I then dissected the gallbladder free of its remaining peritoneal attachments to the liver. There was lot of inflammation in the upper half of the gallbladder and the cautery was used for much of the dissection We continued our dissection and eventually freed the gallbladder from the liver. Gallbladder was placed in Endo-Catch bag retrieved through the 10 11 epigastric trocar site.This trocar site had to be enlarged to accomodate the gallbladder. We replaced the epigastric trocar reviewed the right upper quadrant. Towel clip was used to close skin so we could re-insufflate. Irrigation and suctioning were carried out. Some additional cautery on the gallbladder fossa was used.There was still a lot of oozing in the liver bed and Surgiflo was placed in the liver bed with good affect. We continued irrigating suctioning and checking the area. The omental adhesions to the gallbladder were also oozing blood quite a bit. A 2nd syringe of Surgiflo was then placed over this raw surface. It also stop the bleeding very nicely. We had irrigated and suctioned repeatedly. At this point, there was no evidence of bleeding or bile leakage. We evacuated CO2 and removed the trocar sleeves. The fascia at the epigastric trocar site was closed with 0 Vicryl suture. The subcutaneous was closed with 3-0 Vicryl suture. Skin wounds were closed with subcuticular 4-0 Monocryl skin suture. The wounds were dressed with Exofin surgical adhesive. Patient was awakened and taken to recovery in good condition. Sponge needle counts were correct x2. Estimated Blood Loss -100 Drains No Packing No Pathology Yes (Gallbladder) Complications No immediate complications Condition Stable Disposition PACU [facility] Billing Surgery - Charge Forward: Surgery Billing (Laparoscopic cholecystectomy)
[2022-02-16] MEDS: ACETAMINOPHEN 500 MG TABLET 1000 MG PO (12:18)
[2022-02-16] MEDS: KETOROLAC 15 MG/ML VIAL (*BKC) IV PUSH (12:18)
--- NOTE | 2022-02-16 13:03 | P.HPUP_ITS ---
History and Physical Update Update Date/Time: 02/16/22 13:03 Patient went to the emergency room following her office visit. She had severe right upper quadrant abdominal pain. She had an ultrasound which showed a thickened gallbladder wall with multiple gallstones. HIDA scan was not ne cessary. Plan is to go ahead today with laparoscopic cholecystectomy. I discussed the procedure again with the patient and her . She agrees to go ahead. History and Physical has been reviewed, including an updated exam of the patient. There are NO changes in the patient's condition. Risks, benefits, and alternatives have been discussed and questions answered. Patient agrees to proceed with procedure.
[2022-02-16] MEDS: ceFAZolin 2 GM/D5W 50 ML 2 GM/50 ML BAG IVPB (13:06)
[2022-02-16] MEDS: BUPIVACAINE/EPINEPHRINE 0.25% 50 ML VIAL INFILTRATE (14:27)
[2022-02-16] MEDS: ONDANSETRON INJ 4 MG/2 ML VIAL IV PUSH (14:57)
[2022-02-16] MEDS: oxyCODONE HCL (*CRX) 5 MG TAB IR PO (15:35)
== END 2022-02-16 16:45 | disposition home or self-care (01) ==
PROVIDERS: PCP Family Medicine; Referring Provider Specialist; Visit Provider Surgery
PROC: 0FT44ZZ Resection of Gallbladder, Percutaneous Endoscopic Approach (ICD-10-PCS; CPT 47562; principal; 2022-02-16 13:30)
DX: K80.12 Calculus of gallbladder with acute and chronic cholecystitis without obstruction (principal); I50.9 Heart failure, unspecified; F31.9 Bipolar disorder, unspecified; E78.5 Hyperlipidemia, unspecified; E03.9 Hypothyroidism, unspecified; F17.290 Nicotine dependence, other tobacco product, uncomplicated; K21.9 Gastro-esophageal reflux disease without esophagitis; I25.2 Old myocardial infarction; Z45.02 Encounter for adjustment and management of automatic implantable cardiac defibrillator
CPT/HCPCS: 47562; 88304; A9270; C1713; J0690; J1100; J1170; J1885; J2250; J2270; J2405; J2704; J2710; J3010; J7120

== ENCOUNTER 2022-04-26 15:23 | Outpatient (CLI) | payer OTHER, SELFPAY ==
[2022-04-26 21:56] LABS: Hemoglobin A1C 5.2 % (<5.7)
== END 2022-04-26 15:24 | disposition home or self-care (01) ==
LOC: ANHLAB 15:25
PROVIDERS: PCP Family Medicine; Visit Provider Nurse Practitioner Adult Health
DX: E03.9 Hypothyroidism, unspecified (principal); R63.5 Abnormal weight gain
CPT/HCPCS: 36415; 83036; 84443

== ENCOUNTER 2022-05-04 08:34 | Outpatient (CLI) | payer OTHER, SELFPAY ==
--- NOTE | ~2022-05-04 | XR_ITS ---
EXAMINATION: XR lumbar spine min 4V, XR sacroiliac joints min 3V DATE: 05/04/2022 08:59 INDICATION: Chronic lumbar radiculopathy TECHNIQUE: 1. Anteroposterior, lateral, and bilateral oblique views of the lumbar spine, and cone-down lateral v iew of the lumbosacral junction were obtained. 2. AP and left and right oblique views of the sacroiliac joints were obtained. COMPARISON: None. FINDINGS: Lumbar spine: Minimal lower lumbar levocurvature. Sagittal alignment is normal. Vertebral body heights are normal. Moderate to severe disc height loss at L5-S1. Mild disc height loss at T12-L1. Relatively preserved d isc heights with mild degenerative endplate changes at the intervening lumbar levels. Mild to moderat e lower lumbar predominant facet osteoarthritis. No pars interarticularis defects. Cholecystectomy cl ips in right upper quadrant. Atherosclerotic calcification along the abdominal aorta and iliac arteri es. Sacralized joints: Sacral arches are intact. No fracture. Mild bilateral sacroiliac osteoarthritis with mild osteitis co ndensans ilii on the left. No erosions to suggest an inflammatory sacroiliitis. Visualized portion of the bilateral hip joints appear normal. IMPRESSION: 1. Lumbar spondylosis, moderate severity at the lumbosacral junction and otherwise mild. 2. Mild bilateral sacroiliac osteoarthritis. Reviewed, dictated and finalized at location B. TH ECONOMIST IMPRESSION: 1. Lumbar spondylosis, moderate severity at the lumbosacral junction and otherw ise mild. 2. Mild bilateral sacroiliac osteoarthritis.
== END 2022-05-04 08:35 | disposition home or self-care (01) ==
PROVIDERS: PCP Family Medicine; Visit Provider Physician Assistant
DX: M47.26 Other spondylosis with radiculopathy, lumbar region (principal); M53.3 Sacrococcygeal disorders, not elsewhere classified
CPT/HCPCS: 72110; 72202

== ENCOUNTER 2022-07-09 06:51 | Emergency (ER) | payer OTHER, SELFPAY ==
--- NOTE | ~2022-07-09 | XR_ITS ---
EXAMINATION: XR chest 2V DATE: 07/09/2022 07:37 INDICATION: Left-sided chest pain TECHNIQUE: PA and lateral views of the chest were obtained. COMPARISON: Chest radiograph dated 07/30/2020 FINDINGS: The lungs remain clear with no focal airspace opacities, pulmonary edema, pleural effusion or pneumot horax. The cardiomediastinal silhouette is normal. Three lead pacemaker/AICD seen with leads projecti ng over the expected locations of the right atrial appendage, apex of the right ventricle and overlyi ng the left ventricle likely having traversed the coronary sinus. Cholecystectomy clips in right uppe r quadrant. Mild thoracic spondylosis. IMPRESSION: 1. No acute cardiopulmonary disease. Reviewed, dictated and finalized at location A.
--- NOTE | ~2022-07-09 | CT_ITS ---
EXAMINATION: CTA chest PE protocol DATE: 07/09/2022 08:49 INDICATION: Left pleuritic chest pain. TECHNIQUE: Computed tomography angiography (CTA) of the chest was performed with 100 mL Omnipaque-350 intravenous contrast timed to evaluate the pulmonary arteries. Coronal maximum intensity projection 3D-reconstructions were created by the technologist. Automated exposure control and iterative reconst ruction technique were employed. The dose-length product was 529.32 mGy-cm. COMPARISON: CT abdomen and pelvis 01/22/2022 FINDINGS: There is mild emphysema. There is a 3 mm nodule in left lower lobe, likely benign. No pleur al effusion. Cardiomegaly is noted. There are coronary artery calcifications. No pericardial effusion . There is mild aortic atherosclerosis. There is a left chest pacer with leads in right atrium, right ventricle, and coronary sinus. There is no pulmonary embolus. There is a small sliding hiatal hernia . There are changes of cholecystectomy. There is mild thoracic spondylosis. IMPRESSION: 1. No pulmonary embolus. 2. Mild emphysema. 3. Small sliding hiatal hernia. Reviewed, dictated and finalized at location D.
--- NOTE | 2022-07-09 06:52 | ECG_ITS ---
Measurements Intervals [place] Rate: 71 P: 71 NE: 156 QRS: -39 QRSD: 126 T: 80 QT: 424 QTc: 464 Interpretive Statements ELECTRONIC VENTRICULAR PACEMAKER ABNORMAL RHYTHM ECG COMPARED TO ECG 02/14/2022 10:33:39 NO SIGNIFICANT CHANGES Electronically Signed On 07-09-2022 12:24:03 CDT by Mike Mcpherson M.D.
[2022-07-09 07:00] VITALS: BP 105/73; PULSE 78; RESP 18; O2SAT 98
[2022-07-09 07:13] LABS: Basophils Percent Auto 0.5 % (0.2-1.2); Eosinophils Absolute Auto 0.2 K/mm3 (0-0.3); Hematocrit 41.7 % (37.0-47.0); Hemoglobin 13.8 g/dL (12.0-15.0); Immature Granulocyte Absolute 0.02 K/mm3 (0.00-0.031); Immature Granulocyte Percent A 0.3 % (0-0.5); Lymphocytes Absolute Auto 1.48 K/mm3 (0.9-3.2); Lymphocytes Percent Auto 24.9 % (18.3-44.2); Mean Corpuscular HGB Conc 33.1 g/dl (32-36); Mean Corpuscular Hemoglobin 30.5 pg (26-34); Mean Corpuscular Volume 92.1 fl (80-100); Mean Platelet Volume 10.8 fl (7.4-10.4); Monocytes Absolute Auto 0.4 K/mm3 (0.1-0.6); Monocytes Percent Auto 7.2 % (2.6-8.5); Neutrophils Absolute Auto 3.8 K/mm3 (1.3-6.7); Neutrophils Percent Auto 64.1 % (45.5-73.1); Platelet Count Result 211 k/mm3 (150-375); Red Blood Count 4.53 M/mm3 (4.2-5.4); Red Cell Distribution Width 12.5 % (11.5-14.5); White Blood Count 5.9 K/mm3 (4.5-10.0)
[2022-07-09 07:16] VITALS: BP 111/81; PULSE 68; RESP 15; O2SAT 97
[2022-07-09 07:22] LABS: INR 1.1; Prothrombin Time 13.9 Seconds (11.1-14.7)
[2022-07-09 07:23] LABS: Partial Thromboplastin Time 28.3 SECONDS (22.3-36.8)
[2022-07-09] MEDS: ASPIRIN 81 MG CHEWABLE TABLET 324 MG PO (07:26)
[2022-07-09 07:28] LABS: Alanine Aminotransferase 27 U/L (6-35); Albumin Level 4.5 g/dL (3.5-5.1); Alkaline Phosphatase 96 U/L (38-126); Anion Gap 6 mmol/L (8-16); Aspartate Amino Transferase 28 U/L (14-36); Bilirubin,Total 0.6 mg/dL (0.2-1.3); Blood Urea Nitrogen 9 mg/dL (7-17); Calcium 8.9 mg/dL (8.4-10.2); Carbon Dioxide 26 mmol/L (22-30); Chloride 106 mmol/L (98-107); Estimated CRCL calculation 90 ml/min; Estimated Glomerular Filt Rate > 60; Glucose 115 mg/dL (65-110); Lipase 111 U/L (23-300); Sodium 138 mmol/L (137-145)
[2022-07-09 07:39] LABS: Troponin I < 0.012 ng/mL (0.000-0.034)
[2022-07-09 07:46] VITALS: BP 111/70; PULSE 76; RESP 25; O2SAT 97
[2022-07-09 08:01] VITALS: BP 114/71
[2022-07-09 08:21] VITALS: PULSE 65
[2022-07-09 08:31] LABS: D Dimer 0.54 ug/mL (<0.48)
--- NOTE | 2022-07-09 08:58 | ED.CHESTPAIN ---
HPI - Chest Pain General Chief Complaint: Chest Pain Stated Complaint: I think I had a heart attack, my defib went off. Time Seen by Provider: 07/09/22 06:57 Source: patient, RN notes reviewed and old records reviewed Mode of arrival: ambulatory Limitations: no limitations History of Present Illness HPI narrative: This is a 47 year old female with history of nonischemic cardiomyopathy and AICD who presents for chest pain. She has been having intermittent sharp left chest pain since last night. She reports her pain was worse at 630 am this morning. She reports her pain has been intermittent lasting several minutes. It is worse with deep inspiration. She also reports having cold sweats this morning. She has chronic cough, and denies fever or chills. She tells me that she does not think he defibrillator when off. She also denies having chest pain at this time. Related Data Home Medications Medication Instructions Recorded Confirmed rosuvastatin 10 mg tablet (Crestor) 10 mg PO DAILY 08/27/20 05/03/22 dextroamphetamine-amphetamine 20 20 mg PO DIRECTED 02/27/21 05/03/22 mg tablet cariprazine 4.5 mg capsule 4.5 mg PO DAILY 11/20/21 05/03/22 (Vraylar) carvedilol 12.5 mg tablet 12.5 mg PO Q12H 11/20/21 05/03/22 citalopram 20 mg tablet 60 mg PO DAILY 11/20/21 05/03/22 furosemide 20 mg tablet (Lasix) 20 mg PO BID 11/20/21 05/03/22 gabapentin 600 mg tablet 600 mg PO TID 11/20/21 05/03/22 hydroxyzine HCl 50 mg tablet 50 mg PO QID Itching 11/20/21 05/03/22 sacubitril 97 mg-valsartan 103 mg 1 tablet PO BID 11/20/21 05/03/22 tablet (Entresto) trazodone 50 mg tablet 150 mg PO .QHS PRN sleep 11/20/21 05/03/22 Allergies Allergy/AdvReac Type Severity Reaction Status Date / Time fenofibrate Allergy Severe Hives Verified 05/03/22 11:01 Penicillins Allergy Intermediate Swelling Verified 05/03/22 11:01 adhesive tape Allergy Unknown Itching Verified 05/03/22 11:01 atorvastatin Allergy Unknown generalized Verified 05/03/22 11:01 rash and itching Review of Systems Constitutional: Constitutional: Denies weakness Cardiovascular: Cardiovascular: Reports chest pain, Denies syncope, Denies rapid heart rate, Reports irregular heart rhythm, Denies leg edema and Denies dyspnea Respiratory: Respiratory: Denies chest congestion, Reports cough (chronic), Denies hemoptysis, Denies excessive phlegm production and Denies dyspnea Gastrointestinal: Gastrointestinal: Denies abdominal pain, Denies hematochezia, Denies diarrhea and Denies vomiting Genitourinary: Genitourinary: Denies hematuria and Denies dysuria Musculoskeletal: Musculoskeletal: Denies joint swelling, Denies loss of height and Denies muscle weakness Neurologic: Denies syncope, Denies focal weakness and Denies weakness [facility] Past Medical History Medical History Abnormal mammogram of both breasts Bipolar 1 disorder Cardiomyopathy Congestive heart failure History of heart attack Hyperlipemia Hypothyroidism 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 Surgical History Surgical History History of History of partial hysterectomy x3 Hx laparoscopic cholecystectomy 02/16/22 Pacemaker Family History Family History Father Abdominal aortic aneurysm Mother , age 72 Diabetes mellitus Hypertension Cerebrovascular accident Congestive cardiac failure Bipolar 1 disorder Sibling Breast cancer Social History Social History (Updated 05/03/22 @ 11:29 by Maryjo Hoyt PA-C) Smoking status: Current every day smoker Tobacco type: e-cigarettes/vaping Second hand tobacco smoke exposure: No Alcohol intake: former Substance use: never Substance use type: does not use Lack of Transportation: No Lack of Food: Never True Current Caprice
[2022-07-09 10:21] LABS: Troponin I < 0.012 ng/mL (0.000-0.034)
--- NOTE | 2022-07-09 10:45 | PC.NURSE ---
medtronic interrogation completed and Dr Cuenca made aware
[2022-07-09 10:58] VITALS: BP 118/72; PULSE 64; RESP 19; O2SAT 100
== END 2022-07-09 11:00 | disposition home or self-care (01) ==
PROVIDERS: Emergency Medicine; Emergency Provider General Practice
DX: R07.89 Other chest pain (principal); Z45.02 Encounter for adjustment and management of automatic implantable cardiac defibrillator; I42.8 Other cardiomyopathies; I50.9 Heart failure, unspecified; I25.2 Old myocardial infarction; E78.5 Hyperlipidemia, unspecified; E03.9 Hypothyroidism, unspecified; Z90.711 Acquired absence of uterus with remaining cervical stump; F17.290 Nicotine dependence, other tobacco product, uncomplicated; Z95.810 Presence of automatic (implantable) cardiac defibrillator; K44.9 Diaphragmatic hernia without obstruction or gangrene; J43.9 Emphysema, unspecified
CPT/HCPCS: 36415; 71046; 71275; 80053; 83690; 84484; 85025; 85380; 85610; 85730; 93005; 99284; A9270; Q9967

== ENCOUNTER 2022-11-10 09:35 | Outpatient (CLI) | payer OTHER, SELFPAY | END 2022-11-10 09:36 | disposition home or self-care (01) | PROVIDERS: Visit Provider Family Medicine | DX: E03.9 Hypothyroidism, unspecified (principal) | CPT/HCPCS: 36415; 84443 ==

== ENCOUNTER 2024-03-08 12:30 | Outpatient (CLI) | payer OTHER, SELFPAY ==
--- NOTE | ~2024-03-08 | XR_ITS ---
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 RESULT: Lines, tubes, and devices: Left chest pacer/AICD with intact leads. Close cystectomy clips. Lungs and pleura: Minimal posterior costophrenic angle blunting, otherwise clear. Cardiomediastinal silhouette: Stable. Other: No acute osseous or upper abdominal finding. IMPRESSION: Minimal posterior costophrenic angle blunting may represent atelectasis, chronic scarring, or trace e ffusions. Reviewed, dictated and finalized at location K. RVISOR FURNACE PROCESS IMPRESSION: Minimal posterior costophrenic angle blunting may represent atelectasis, chroni c scarring, or trace effusions.
--- NOTE | ~2024-03-08 | XR_ITS ---
EXAM: XR thoracic spine 2V DATE: 03/08/2024 12:54 HISTORY: pneumonia, unspecified organism, T spine pain . COMPARISON: CTPA 07/09/2022. FINDINGS: Partially visualized leads from a left chest pacer/AICD. Partially visualized postoperative clips. Vertebral body alignment intact. Vertebral body heights preserved. Mild spinal asymmetry. Mil d multilevel disc space narrowing and marginal osteophytosis. No traumatic malalignment or fracture. Visualized lung parenchyma is clear. IMPRESSION: Mild multilevel thoracic degenerative disc disease. Reviewed, dictated and finalized at location K. OMER CARE CONSULTANT
== END 2024-03-08 12:31 | disposition home or self-care (01) ==
PROVIDERS: PCP Family Medicine; Visit Provider Family Medicine
DX: M51.34 Other intervertebral disc degeneration, thoracic region (principal); J18.9 Pneumonia, unspecified organism
CPT/HCPCS: 71046; 72070

== ENCOUNTER 2024-03-31 13:48 | Inpatient (IN) | payer OTHER, SELFPAY ==
[2024-03-31] VITALS (10 sets, daily range): BP systolic 72–92; BP diastolic 44–66; PULSE 67–81; RESP 13–31; TEMP 36.4–36.8; O2SAT 92–100; BMI 24.2
--- NOTE | ~2024-03-31 | XR_ITS ---
CHEST RADIOGRAPH CLINICAL HISTORY: Syncope This Morning . COMPARISON: 03/08/2024 TECHNIQUE: Single portable view of the chest. FINDINGS The left mid lung is partially obscured due to AICD/pacemaker generator. Wires project over the right atrium, coronary sinus and right ventricle. The remainder of the cardiomediastinal silhouette is otherwise unremarkable. The lungs are clear. Visualized osseous structures and soft tissues are unremarkable. IMPRESSION: No focal infiltrate or effusion. Reviewed, dictated and finalized at location A. [employer]ER
--- NOTE | ~2024-03-31 | CT_ITS ---
History: Syncope PROCEDURE: CT head without contrast. COMPARISON: None TECHNIQUE: Axial imaging of the head performed from the skull base to the vertex without IV contrast. Sagittal a nd coronal reformations obtained. DLP: 530 mGy-cm FINDINGS: The ventricles are age-appropriate in size, shape and position. There is no mass, mass effect or midline shift. There is no abnormal extra-axial fluid collection or intracranial hemorrhage. Visualized paranasal sinuses are clear. The mastoid air cells are well aerated. No acute displaced fractures within the overlying cranium. Impression: No acute intracranial hemorrhage or suspicious mass effect. Reviewed, dictated and finalized at location A. R CHECKER Impression: No acute intracranial hemorrhage or suspicious mass effect.
--- NOTE | 2024-03-31 14:52 | ECG_ITS ---
Test Date: 2024-03-31 17:03:47 Measurements Intervals [place] Rate: 63 P: 48 OK: 192 QRS: -54 QRSD: 134 T: 70 QT: 456 QTc: 469 Interpretive Statements ELECTRONIC VENTRICULAR PACEMAKER ABNORMAL RHYTHM ECG No previous ECG available for comparison Electronically Signed On 04-01-2024 13:49:15 ASSISTANT [employer] ATTORNEY by Joseph Lewis M.D.
[2024-03-31 15:26] LABS: Basophils Percent Auto 0.4 % (0.2-1.2); Eosinophils Absolute Auto 0.1 K/mm3 (0-0.3); Eosinophils Percent Auto 1.8 % (0-4.4); Hematocrit 28.3 % (37.0-47.0); Hemoglobin 10.2 g/dL (12.0-15.0); Immature Granulocyte Absolute 0.01 K/mm3 (0.00-0.031); Immature Granulocyte Percent A 0.2 % (0-0.5); Lymphocytes Absolute Auto 1.48 K/mm3 (0.9-3.2); Lymphocytes Percent Auto 29.1 % (18.3-44.2); Mean Corpuscular Hemoglobin 33.9 pg (26-34); Mean Platelet Volume 10.5 fl (7.4-10.4); Monocytes Absolute Auto 0.3 K/mm3 (0.1-0.6); Monocytes Percent Auto 6.3 % (2.6-8.5); Neutrophils Absolute Auto 3.2 K/mm3 (1.3-6.7); Neutrophils Percent Auto 62.2 % (45.5-73.1); Platelet Count Result 215 k/mm3 (150-375); Red Blood Count 3.01 M/mm3 (4.2-5.4); Red Cell Distribution Width 13.2 % (11.5-14.5); White Blood Count 5.1 K/mm3 (4.5-10.0)
--- NOTE | 2024-03-31 15:30 | ED_ITS ---
HPI - Fall General Chief Complaint: Fall Stated Complaint: fall, head injury Time Seen by Provider: 03/31/24 14:37 History of Present Illness HPI Narrative: 49-year-old female with a past medical history including dilated nonischemic cardiomyopathy status post AICD pacemaker placement. Presents to the emergency department today after having a syncopal event with head trauma. Patient states she was getting up and down from a seated position multiple times trying to hang [place] ornaments. She fell to the ground and struck the back of her head. She does have a 3-4 cm laceration to posterior scalp is not actively bleeding. She does not take any blood thinner medications, aspirin, Plavix or any other anticoagulations. She is not sure if she was unconscious for prolonged period of time but she is acting appropriately now and denies any headache, vision changes, chest pain, shortness a breath. She had no prodromal symptoms aside from some television before falling. Denies any electrical sensations are shocks in her chest, does not think her pacemaker AST went off it she normally gets alert if she has an event. Was otherwise in her normal state of health. Related Data Home Medications ?Medication ?Instructions ?Recorded ?Confirmed ?Last Taken ?Type rosuvastatin 10 mg tablet (Crestor) 10 mg PO DAILY 08/27/20 05/03/22 Unknown History dextroamphetamine-amphetamine 20 20 mg PO DIRECTED 02/27/21 05/03/22 Unknown History mg tablet cariprazine 4.5 mg capsule 4.5 mg PO DAILY 11/20/21 05/03/22 Unknown History (Vraylar) carvedilol 12.5 mg tablet 12.5 mg PO Q12H 11/20/21 05/03/22 Unknown History citalopram 20 mg tablet 60 mg PO DAILY 11/20/21 05/03/22 Unknown History furosemide 20 mg tablet (Lasix) 20 mg PO BID 11/20/21 05/03/22 Unknown History gabapentin 600 mg tablet 600 mg PO TID 11/20/21 05/03/22 Unknown History hydroxyzine HCl 50 mg tablet 50 mg PO QID Itching 11/20/21 05/03/22 Unknown History sacubitril 97 mg-valsartan 103 mg 1 tablet PO BID 11/20/21 05/03/22 Unknown History tablet (Entresto) trazodone 50 mg tablet 150 mg PO .QHS PRN sleep 11/20/21 05/03/22 Unknown History Allergies Allergy/AdvReac Type Severity Reaction Status Date / Time fenofibrate Allergy Severe Hives Verified 05/03/22 11:01 Penicillins Allergy Intermediate Swelling Verified 05/03/22 11:01 adhesive tape Allergy Unknown Itching Verified 05/03/22 11:01 atorvastatin Allergy Unknown generalized Verified 05/03/22 11:01 rash and itching Review of Systems 2 Review of Systems: As reviewed above in [facility] Past Medical History Medical History (Updated 03/31/24 @ 17:19 by Efren Hough MD) Nonischemic dilated cardiomyopathy Left bundle branch block Hypertension History of heart attack Hypothyroidism Bipolar 1 disorder Hyperlipemia Congestive heart failure Surgical History Surgical History (Updated 03/31/24 @ 17:19 by Efren Hough MD) History of cardiac catheterization (04/2019) angiographically non diseased coronary arteries History of laparoscopic cholecystectomy (02/2022) History of placement of internal cardiac defibrillator Dr. Alves Pacemaker History of History of partial hysterectomy Family History Family History Father Abdominal aortic aneurysm Mother , age 72 Diabetes mellitus Hypertension Cerebrovascular accident Congestive cardiac failure Bipolar 1 disorder Sibling Breast cancer Social History Social History (Updated 03/31/24 @ 16:59 by Ngoc Lincoln PA-C) Social History: Surrogate medical decision maker: Code status: Full code. Smoking status: Current every day smoker Tobacco type: e-cigarettes/vaping Second hand tobacco smoke exposure: No Alcohol intake: former Substance use: never Substance use type: does not use Lack of Transportation: No Lack of Food: Never True Current Housing: I Have Housing Concerned About Future Housing: No Difficulty Paying Gas/Electric Bills: No Difficulty Paying for Meds: YES Currently Unemployed: YES Education: High School Diploma/GED Living arrangements: with family Occupation/Education: unemployed Spiritual care concerns: Yes (Jew) Agree to blood products: Yes Exam 2 Narrative: GENERAL: [Well-appearing, well-nourished, and in no acute distress.] HEAD: Normocephalic, 4.0 cm laceration without any active bleeding over the posterior scalp occipital region. No palpable deformities, no active bleeding. EYES: [PERRLA and EOMI.] ENT: Nares clear, no rhinorrhea or epistaxis. Mucous membranes moist. NECK: Supple. CHEST: [Clear to auscultation. No respiratory distress.] HEART: [Regular rate and rhythm]. No murmur heard. [Normal peripheral pulses.] ABDOMEN: [Soft, nondistended], [nontender], [No rigidity or guarding] EXTREMITIES: Normal range of motion. [No edema.] SKIN: Warm, dry, no rash. NEURO: [No focal deficits]. Alert and oriented [x3.] PSYCH: [Normal mood and affect.] MDM - Fall MDM Narrative Medical decision making narrative: 49-year-old female presenting to the emergency department for evaluation of a closed head injury and fall. She had a syncopal event after ascending and descending multiple times while hanging [place] tree or events today. She has a history of nonischemic cardiomyopathy with an AICD pacemaker placement. She otherwise is denying any chest pain, shortness a breath, nausea, vomiting or any pain right now. She had no prodromal symptoms aside from some tunnel vision before losing consciousness very briefly. Patient otherwise is well appearing not any acute distress. She does have a 4 cm laceration in the posterior occipital scalp which will require closure with misha. Head CT images will be obtained given her loss of consciousness with closed head injury. Cardiac workup was ordered given her dilated cardiomyopathy history. [employer] pacemaker/AICD was interrogated and received a report from the provider over the phone which confirms no events or shocks delivered based on the device which is reassuring. Electrolytes are severely deranged with a potassium of less than 2, sodium 122, chloride 77, BUN and creatinine are slightly elevated. Normal glucose and LFTs. We repeated his labs twice and still deranged. CT head shows no acute intracranial process. Chest x-ray without any acute process. Patient's laceration was repaired. I discussed this with the patient, she has stated that she did not know she had any kind potassium problems, does not take a supplemental potassium, does take diuretic therapy with Lasix. Denies any drinking history or alcoholism. She requires IV and p.o. supplementation at this time given her critical low level of potassium. Magnesium test was ordered this time. EKG was obtained, nonischemic, no ectopy, ventricular paced rhythm noted. She was given IV 40 mg potassium and p.o. 80 mg potassium as well as a L of NS. I discussed the case with the mid-level provider currently covering the hospitalist group accepted the patient to the IMU at this time for admission, repeat electrolytes and rehydration. Patient's scalp laceration was repaired with misha and she was agreeable to stay in the hospital for continued care. Medical Records Attestation: I reviewed the patient's medical records. Lab Data Attestation: I reviewed the patient's lab results. 03/31/24 15:19 03/31/24 15:57 Labs: Lab Results 03/31/24 03/31/24 03/31/24 Range/Units 15:19 15:56 15:57 WBC 5.1 (4.5-10.0) K/mm3 RBC 3.01 L (4.2-5.4) M/mm3 Hgb 10.2 L D (12.0-15.0) g/dL Hct 28.3 L (37.0-47.0) % MCV 94.0 (80-100) fl MCH 33.9 (26-34) pg MCHC 36.0 (32-36) g/dl RDW 13.2 (11.5-14.5) % Plt Count 215 (150-375) k/mm3 MPV 10.5 H (7.4-10.4) fl Immature Gran % (Auto) 0.2 (0-0.5) % Neut % (Auto) 62.2 (45.5-73.1) % Lymph % (Auto) 29.1 (18.3-44.2) % [place] % (Auto) 6.3 (2.6-8.5) % Eos % (Auto) 1.8 (0-4.4) % Baso % (Auto) 0.4 (0.2-1.2) % Lymph # (Auto) 1.48 (0.9-3.2) K/mm3 [place] # (Auto) 0.3 (0.1-0.6) K/mm3 Eos # (Auto) 0.1 (0-0.3) K/mm3 Baso # (Auto) 0.0 (0.0-0.1) K/mm3 Abs Immat Gran (auto) 0.01 (0.00-0.031) K/mm3 Absolute Neuts (auto) 3.2 (1.3-6.7) K/mm3 Absolute Nucleated RBC 0.000 (0.0-0.012) K/mm3 Nucleated RBC % 0.0 (0.0-0.2) % PT 13.9 (11.1-14.7) Seconds INR 1.0 APTT 32.9 (22.3-36.8) Seconds Sodium 122 L (137-145) mmol/L Potassium < 2.0 L* (3.4-5.0) mmol/L Chloride 77 L (98-107) mmol/L Carbon Dioxide > 40 H (22-30) mmol/L Anion Gap (4-12) mmol/L BUN 5 L (7-17) mg/dL Creatinine 1.30 H (0.7-1.0) mg/dL Estim Creat Clear Calc Not Reportable Estimated GFR 43 L (59 - ) Glucose 97 (65-110) mg/dL Calcium 8.2 L (8.4-10.2) mg/dL Magnesium 2.3 (1.6-2.3) mg/dL Total Bilirubin 0.6 (0.2-1.3) mg/dL AST 20 (14-36) U/L ALT 10 (6-35) U/L Alkaline Phosphatase 112 (38-126) U/L Troponin I Pending < 0.012 Total Protein 6.0 L (6.3-8.2) g/dL Albumin 3.3 L (3.5-5.1) g/dL Lipase 65 (23-300) U/L Imaging Data Attestation: I personally reviewed and interpreted this imaging study as follows: My impression: Impressions Head CT 03/31/24 16:23 Impression: No acute intracranial hemorrhage or suspicious mass effect. Chest X-Ray 03/31/24 16:41 IMPRESSION: No focal infiltrate or effusion. ECG Data EKG #1: Attestation: I personally reviewed and interpreted this ECG as follows: ECG completion date: 03/31/24 ECG completion time: 17:03 Prior ECG tracings: available for review Interpretation: Ventricular paced rhythm, no ST segment elevations, depressions or inversions. No ectopy, QTC of 464, QRS of 134, acute urinary 192. No acute ischemic changes. Critical Care Time Critical Care Time Critical Care Time: Yes Total Critical Care Time: 35 Discharge Plan Discharge Clinical Impression: Acute hypokalemia, Syncope, CHI (closed head injury), Laceration of occipital scalp, AICD (automatic cardioverter/defibrillator) present Patient Disposition: Still a Patient Condition: Serious Patient Language: Norwegian Prescriptions: No Action dextroamphetamine-amphetamine 20 mg tablet 20 mg PO DIRECTED Vraylar 4.5 mg capsule 4.5 mg PO DAILY trazodone 50 mg tablet 150 mg PO .QHS PRN (Reason: sleep) citalopram 20 mg tablet 60 mg PO DAILY gabapentin 600 mg tablet 600 mg PO TID furosemide [Lasix] 20 mg tablet 20 mg PO BID Entresto 97-103 mg tablet 1 tablet PO BID carvedilol 12.5 mg tablet 12.5 mg PO Q12H Rx Instructions: must administer with a meal/food hydroxyzine HCl 50 mg tablet 50 mg PO QID rosuvastatin [Crestor] 10 mg tablet 10 mg PO DAILY estradiol [Estrace] 1 mg tablet 1 mg PO DAILY Qty: 90 3RF levothyroxine 75 mcg tablet 75 mcg PO DAILY Qty: 90 1RF diclofenac sodium [Voltaren Arthritis Pain] 1 % gel 4 g topical QID Qty: 100 0RF Rx Instructions: apply to area of pain diclofenac sodium 50 mg tablet,delayed release (DR/EC) 50 mg PO BID PRN (Reason: pain) Qty: 60 0RF Follow-up/Referrals: Niranjan,Hipolito Howell MD [Primary Care Provider] - Time of Disposition: 17:19
[2024-03-31 15:43] LABS: Prothrombin Time 13.9 Seconds (11.1-14.7)
[2024-03-31 15:45] LABS: Partial Thromboplastin Time 32.9 Seconds (22.3-36.8)
[2024-03-31 16:42] LABS: Alanine Aminotransferase 10 U/L (6-35); Albumin Level 3.3 g/dL (3.5-5.1); Alkaline Phosphatase 112 U/L (38-126); Aspartate Amino Transferase 20 U/L (14-36); Bilirubin,Total 0.6 mg/dL (0.2-1.3); Blood Urea Nitrogen 5 mg/dL (7-17); Calcium 8.2 mg/dL (8.4-10.2); Carbon Dioxide > 40 mmol/L (22-30); Chloride 77 mmol/L (98-107); Estimated Glomerular Filt Rate 43; Glucose 97 mg/dL (65-110); Lipase 65 U/L (23-300); Potassium < 2.0 mmol/L (3.4-5.0); Sodium 122 mmol/L (137-145)
--- NOTE | 2024-03-31 16:50 | P.HP_ITS ---
H&P: HPI History of Present Illness Date/Time: 03/31/24 17:30 Chief Complaint: Syncope. Narrative: This is a pleasant 49-year-old female with nonischemic dilated cardiomyopathy diagnosed in December 2018 with an EF as low as 20-25% status post ventricular ICD implantation per Dr. Alves in 2020 with self-reported EF of 35% within the last several months, hypertension, hyperlipidemia, and hypothyroidism who presented to the emergency department via private vehicle for evaluation after syncopal episode. The patient provides the following history. She was standing in her kitchen today when she began to feel weak, lightheaded, and dizzy. She then passed out, falling backwards and striking her head on the kitchen floor. With further questioning she reports having intermittent episodes of lightheadedness over the past 6 weeks or so, typically occurring when going from a seated to standing position or while bending over. They have been increasingly frequent the last several days which she believes is due to dehydration as she reports vomiting for nearly 2 days straight after taking her Mounjaro injection on Saturday. She has not had any episodes of emesis today. She has lost almost 70 lb in the last 1 year and has not had any change in her medications. She denies fever, chills, sweats, cold and flu symptoms, vertigo, vision changes, headache, neck ache, chest pain, pleuritic pain, shortness of breath, abdominal pain, diarrhea, melena, hematochezia, dysuria, and decrease in urine output. Her defibrillator has never fired. In the ED: Blood pressure was 89/45 on arrival to the ED and the remainder of vital signs were stable. Labs were significant for hemoglobin of 10.2, hematocrit 28.3%, sodium 122, potassium less than 2.0, chloride 77, carbon dioxide greater than 40, BUN 5, creatinine 1.30, calcium 8.2, magnesium 2.3, total protein 6.0, albumin 3.3. EKG showed a ventricular paced rhythm. Head CT showed no acute intracranial hemorrhage or suspicious mass effect. Chest x-ray showed no focal infiltrate or effusion. She was given 1 L normal saline bolus, potassium chloride IV 40 mEq, potassium chloride 80 mEq p.o.. She is being admitted in this setting for further treatment. Review of Systems Review of Systems: 12 systems were reviewed and are negativ e except for as per HPI. [facility], [facility] Past Medical History Medical History (Updated 03/31/24 @ 21:05 by Ngoc Lincoln PA-C) Tobacco dependence Nonischemic dilated cardiomyopathy Left bundle branch block Hypertension History of heart attack Hypothyroidism Bipolar 1 disorder Hyperlipemia Surgical History Surgical History History of cardiac catheterization (04/2019) angiographically non diseased coronary arteries History of laparoscopic cholecystectomy (02/2022) History of placement of internal cardiac defibrillator Dr. Alves Pacemaker History of History of partial hysterectomy Family History Family History Father Abdominal aortic aneurysm Mother , age 72 Diabetes mellitus Hypertension Cerebrovascular accident Congestive cardiac failure Bipolar 1 disorder Sibling Breast cancer Social History Social History (Updated 03/31/24 @ 21:02 by Ngoc Lincoln PA-C) Social History: Surrogate medical decision maker: Dominick Cevallos, spouse. Code status: Full code. Smoking packs per day: 1.5 Smoking cigarettes per day: 30.0 Years smoked: 38 Smoking pack-years: 57.00 Smoking status: Current every day smoker Tobacco type: cigarettes Second hand tobacco smoke exposure: Yes Alcohol intake: never Substance use: current Substance use type: marijuana Last use: yesterday Do You Feel Safe in your Home?: Yes Lack of Transportation: YES Lack of Food: Never True Current Housing: I Have Housing Concerned About Future Housing: No Difficulty Paying Gas/Electric Bills: No Difficulty Paying for Meds: No Currently Unemployed: No Education: High School Diploma/GED Difficulty w/ Childcare or Family Care: No Living arrangements: with family Occupation/Education: unemployed Spiritual care concerns: No Agree to blood products: Yes Meds Home Medications and Allergies Home Medications ?Medication ?Instructions ?Recorded ?Confirmed ?Type rosuvastatin 10 mg tablet (Crestor) 10 mg PO DAILY 08/27/20 05/03/22 History dextroamphetamine-amphetamine 20 20 mg PO DIRECTED 02/27/21 05/03/22 History mg tablet cariprazine 4.5 mg capsule 4.5 mg PO DAILY 11/20/21 05/03/22 History (Vraylar) carvedilol 12.5 mg tablet 12.5 mg PO Q12H 11/20/21 05/03/22 History furosemide 20 mg tablet (Lasix) 20 mg PO BID 11/20/21 05/03/22 History gabapentin 600 mg tablet 600 mg PO TID 11/20/21 05/03/22 History sacubitril 24 mg-valsartan 26 mg 1 tablet PO BID 03/31/24 03/31/24 History tablet (Entresto) Allergies Allergy/AdvReac Type Severity Reaction Status Date / Time fenofibrate Allergy Severe Hives Verified 05/03/22 11:01 Penicillins Allergy Intermediate Swelling Verified 05/03/22 11:01 adhesive tape Allergy Unknown Itching Verified 05/03/22 11:01 atorvastatin Allergy Unknown generalized Verified 05/03/22 11:01 rash and itching Exam Narrative: General: Nontoxic-appearing female sitting up in bed in no distress. Weight: 62 kg. BMI: 24.2. HEENT: Laceration on the posterior scalp status post misha x5. PERRL, EOMI. Sclera anicteric. Tacky mucous membranes. Neck: Supple. Respiratory: Lungs are clear to auscultation bilaterally. Cardiovascular: Regular rate and rhythm with S1-S2. Gastrointestinal: Abdomen is soft, nontender, and nondistended with positive bowel sounds. Skin: Warm and dry. No rash or lesions on limited exam. Extremities: No cyanosis, clubbing, or edema. Radial and pedal pulses intact. Neurological: Alert. Cranial nerves 2-12 are grossly intact. Delete No gross focal deficits to casual conversation. Psychiatric: Pleasant and cooperative with normal mood and affect. Judgment and insight intact. H&P: Results Labs Labs: Short CBC 03/31/24 Range/Units 15:19 WBC 5.1 (4.5-10.0) K/mm3 Hgb 10.2 L D (12.0-15.0) g/dL Hct 28.3 L (37.0-47.0) % Plt Count 215 (150-375) k/mm3 BMP 03/31/24 15:57 Sodium 122 L Potassium < 2.0 L* Chloride 77 L Carbon Dioxide > 40 H BUN 5 L Creatinine 1.30 H Glucose 97 Calcium 8.2 L Liver Function 03/31/24 Range/Units 15:57 Total Bilirubin 0.6 (0.2-1.3) mg/dL AST 20 (14-36) U/L ALT 10 (6-35) U/L Alkaline Phosphatase 112 (38-126) U/L Albumin 3.3 L (3.5-5.1) g/dL Imaging Head CT 03/31/24 16:23 Impression: 1. No acute intracranial hemorrhage or suspicious mass effect. Chest X-Ray 03/31/24 16:41 IMPRESSION: 1. No focal infiltrate or effusion. Assessment and Plan Assessment and plan (1) Syncope: Code(s): R55 - Syncope and collapse Status: Acute (2) Acute kidney injury: Code(s): N17.9 - Acute kidney failure, unspecified Status: Acute (3) Electrolyte abnormality: Code(s): E87.8 - Other disorders of electrolyte and fluid balance, not elsewhere classified Status: Acute (4) Dehydration: Code(s): E86.0 - Dehydration Status: Acute (5) Nonischemic dilated cardiomyopathy: Code(s): I42.0 - Dilated cardiomyopathy Status: Acute (6) Hypothyroidism: Code(s): E03.9 - Hypothyroidism, unspecified Status: Acute (7) Normocytic anemia: Code(s): D64.9 - Anemia, unspecified Status: Acute (8) Tobacco dependence: Code(s): F17.200 - Nicotine dependence, unspecified, uncomplicated Status: Acute Plan The patient presented to the emergency department after a syncopal episode as detailed in HPI. Labs, imaging, EKG, and all reports were personally reviewed. She has an acute kidney injury which is likely due to dehydration from vomiting the last 2 days in addition to diuretics. Blood pressures have been soft and hypoperfusion from hypotension is also possibility. She has multiple electrolyte abnormalities including hyponatremia, hypokalemia, and hypochloremia. Continue judicious IV fluid rehydration. Potassium will be replaced and electrolytes will be monitored closely. Monitor strict I/O and daily weight and avoid over- hydration given her cardiomyopathy. If no improvement with IV fluids alone, a further workup can be pursued. Syncope is likely related to dehydration but she will be monitored on telemetry and device will be interrogated to rule out dysrhythmia. Check orthostatic vital signs. Check iron studies, B12, and folate for evaluation of anemia. Continue levothyroxine and check TSH. Smoking cessation was discussed and is imperative. Nicotine patch is available per patient request. The rest of her home medications will be reviewed and resumed as appropriate. Findings and treatment plan were discussed with the patient. Questions were solicited and answered to satisfaction. The patient's medical management will be taken over by the hospitalist team in a.m. Quality VTE Prophylaxis VTE prophylaxis: mechanical ordered If No VTE Prophylaxis Answer both mechanical and pharmacologic: Reason no pharmacologic proph: low risk/not indicated Hospitalist MIPS Advance Care Plan I have confirmed that the patient's Advanced Care Plan is present, code status is documented, or surrogate decision maker is listed in patient medical record.: Yes Medication Reconciliation I have utilized all available resources to obtain, update and review the patients current medications (includes all prescriptions, OTC, herbals, cannabis, and nutritional supplements).: Yes
[2024-03-31 16:51] LABS: Troponin I < 0.012 ng/mL (0.000-0.034)
[2024-03-31 17:04] LABS: Magnesium 2.3 mg/dL (1.6-2.3)
[2024-03-31] MEDS: SODIUM CHLORIDE 0.9% IV 1,000 ML 999 ML IV CONT (17:38)
[2024-03-31] MEDS: POTASSIUM CHLORIDE 20 MEQ ER TABLET 80 MEQ PO (17:38)
[2024-03-31] MEDS: KCL 40 MEQ/WATER 100 ML 100 ML 25 ML IVPB (17:39)
--- NOTE | 2024-03-31 18:57 | PC.NURSE ---
Report attempted x1 to IMU.
--- NOTE | 2024-03-31 19:03 | PC.NURSE ---
Report called to JESSICA Vaz. All questions answered
[2024-03-31 20:09] LABS: Troponin I < 0.012 ng/mL (0.000-0.034)
--- NOTE | 2024-03-31 20:16 | ADMGEN ---
This patient, Jenny Cevallos, was admitted to IMU Room 200-01. Patient/family oriented to hospital policies and general routines including ID bracelet, bed and alarms, visiting hours, pain management, procedures, bathroom and other care routines, personal items, smoking policy, room service/diet, and visiting hours. Information on how to activate the Rapid Response Team has been discussed. Patient/Family are encouraged to report perceived risks to care and to ask questions if they do not understand what they are told or what they should do.
[2024-03-31 22:07] LABS: Blood Urea Nitrogen 4 mg/dL (7-17); Calcium 7.8 mg/dL (8.4-10.2); Carbon Dioxide > 40 mmol/L (22-30); Chloride 88 mmol/L (98-107); Estimated CRCL calculation 49 ml/min; Estimated Glomerular Filt Rate 58; Glucose 95 mg/dL (65-110); Magnesium 2.3 mg/dL (1.6-2.3); Sodium 127 mmol/L (137-145)
[2024-03-31 22:16] LABS: Iron 34 ug/dL (37-170)
[2024-03-31 22:27] LABS: Percent Iron Saturation 14 % (20-50)
[2024-03-31] MEDS: NICOTINE (*PBKC) 21 MG PATCH 1 PATCH TRANSDERM (22:30)
[2024-03-31] MEDS: SODIUM CHLORIDE 0.9% IV 1,000 ML 100 ML IV CONT (22:44)
[2024-03-31 23:09] LABS: Folic Acid 2.5 ng/mL (2.76->20)
[2024-03-31 23:33] LABS: Troponin I < 0.012 ng/mL (0.000-0.034)
[2024-03-31] MEDS: POTASSIUM CHLORIDE INJ 40 MEQ in SODIUM CHLORIDE 0.9% IV 500 ML 130 MEQ IVPB (23:57)
[2024-03-31] MEDS: POTASSIUM CHLORIDE 20 MEQ ER TABLET 40 MEQ PO (23:57)
[2024-04-01] VITALS (7 sets, daily range): BP systolic 94; BP diastolic 49–52; PULSE 75–84; RESP 16–18; TEMP 36.2–36.6; O2SAT 92–100
[2024-04-01 00:04] LABS: Free T4 Free Thyroxine Reflex 1.71 ng/dL (0.78-2.19)
[2024-04-01 01:45] LABS: Total Triiodothyronine (T3) 1.26 NG/ML (0.97-1.69)
[2024-04-01 06:01] LABS: Anion Gap -2 mmol/L (4-12); Blood Urea Nitrogen 2 mg/dL (7-17); Calcium 7.9 mg/dL (8.4-10.2); Carbon Dioxide 38 mmol/L (22-30); Chloride 99 mmol/L (98-107); Estimated CRCL calculation 49 ml/min; Estimated Glomerular Filt Rate 58; Glucose 118 mg/dL (65-110); Potassium 2.6 mmol/L (3.4-5.0); Sodium 135 mmol/L (137-145)
--- NOTE | 2024-04-01 08:42 | PC.NURSE ---
Patient requested to see this nurse and asked about potassium level. Reported that her level was 4.4. Stated she wanted to leave AMA, this RN called Dr Brewer to make his aware. Patient signed AMA paper work, IVs removed and left with family AMA.
--- NOTE | 2024-04-01 12:39 | PM.IMPN ---
Subjective Date/time seen: 04/01/24 12:39 Interval history: Patient left AMA this morning before I could see her. Objective Data Vital Signs Vital Signs: Vital Signs - 24 hr 03/31/24 16:48 03/31/24 16:57 03/31/24 17:00 Temperature Pulse Rate 69 67 67 Respiratory Rate 14 19 16 Blood Pressure 89/45 L 76/65 L 72/52 L Pulse Oximetry 95 98 100 Oxygen Delivery Fraction of Inspired Oxygen 03/31/24 17:17 03/31/24 18:00 03/31/24 18:30 Temperature Pulse Rate 73 68 81 Respiratory Rate 31 H 20 20 Blood Pressure 81/44 L Pulse Oximetry 95 100 Oxygen Delivery Fraction of Inspired Oxygen 03/31/24 18:47 03/31/24 20:25 03/31/24 22:00 Temperature 97.6 F Pulse Rate 76 76 75 Respiratory Rate 13 16 Blood Pressure 88/66 L 87/52 L Pulse Oximetry 99 96 Oxygen Delivery Fraction of Inspired Oxygen 03/31/24 23:58 04/01/24 00:00 04/01/24 00:00 Temperature 98.3 F Pulse Rate 76 84 Respiratory Rate 16 Blood Pressure 92/48 L Pulse Oximetry 92 92 Oxygen Delivery Room Air Fraction of Inspired Oxygen 04/01/24 02:00 04/01/24 03:51 04/01/24 04:00 Temperature 97.8 F Pulse Rate 83 75 Respiratory Rate 16 Blood Pressure 94/52 L Pulse Oximetry 100 92 Oxygen Delivery Room Air Fraction of Inspired Oxygen 04/01/24 04:00 04/01/24 06:28 04/01/24 07:57 Temperature Pulse Rate 79 79 Respiratory Rate Blood Pressure Pulse Oximetry 99 Oxygen Delivery Room Air Fraction of Inspired Oxygen 21 04/01/24 08:00 Temperature 97.2 F L Pulse Rate 81 Respiratory Rate 18 Blood Pressure 94/49 L Pulse Oximetry 98 Oxygen Delivery Fraction of Inspired Oxygen Intake/Output Intake/Output: Intake & Output 03/29/24 03/30/24 03/31/24 04/01/24 23:59 23:59 23:59 23:59 Intake Total 550 Output Total 2000 Balance -1450 Meds/Results Radiology Results: ITS Impressions Head CT 03/31/24 16:23 Impression: No acute intracranial hemorrhage or suspicious mass effect. Chest X-Ray 03/31/24 16:41 IMPRESSION: No focal infiltrate or effusion. Labs Labs: Laboratory Results - last 24 hr 03/31/24 03/31/24 03/31/24 15:19 15:56 15:57 WBC 5.1 RBC 3.01 L Hgb 10.2 L D Hct 28.3 L MCV 94.0 MCH 33.9 MCHC 36.0 RDW 13.2 Plt Count 215 MPV 10.5 H Immature Gran % (Auto) 0.2 Neut % (Auto) 62.2 Lymph % (Auto) 29.1 Kemper % (Auto) 6.3 Eos % (Auto) 1.8 Baso % (Auto) 0.4 Lymph # (Auto) 1.48 Kemper # (Auto) 0.3 Eos # (Auto) 0.1 Baso # (Auto) 0.0 Abs Immat Gran (auto) 0.01 Absolute Neuts (auto) 3.2 Absolute Nucleated RBC 0.000 Nucleated RBC % 0.0 PT 13.9 INR 1.0 APTT 32.9 Sodium 122 L Potassium < 2.0 L* Chloride 77 L Carbon Dioxide > 40 H Anion Gap BUN 5 L Creatinine 1.30 H Estim Creat Clear Calc Not Reportable Estimated GFR 43 L Glucose 97 Calcium 8.2 L Magnesium 2.3 Iron TIBC % Saturation Ferritin Total Bilirubin 0.6 AST 20 ALT 10 Alkaline Phosphatase 112 Troponin I < 0.012 Total Protein 6.0 L Albumin 3.3 L Lipase 65 Vitamin B12 Folate TSH (Reflex) Free T4 Total T3 03/31/24 03/31/24 03/31/24 19:43 21:46 22:59 WBC RBC Hgb Hct MCV MCH MCHC RDW Plt Count MPV Immature Gran % (Auto) Neut % (Auto) Lymph % (Auto) Kemper % (Auto) Eos % (Auto) Baso % (Auto) Lymph # (Auto) Kemper # (Auto) Eos # (Auto) Baso # (Auto) Abs Immat Gran (auto) Absolute Neuts (auto) Absolute Nucleated RBC Nucleated RBC % PT INR APTT Sodium 127 L Potassium 2.0 L* Chloride 88 L Carbon Dioxide > 40 H Anion Gap BUN 4 L Creatinine 1.00 Estim Creat Clear Calc 49 Estimated GFR 58 L Glucose 95 Calcium 7.8 L Magnesium 2.3 Iron 34 L TIBC 249 L % Saturation 14 L Ferritin 95.40 Total Bilirubin AST ALT Alkaline Phosphatase Troponin I < 0.012 < 0.012 Total Protein Albumin Lipase Vitamin B12 680.0 Folate 2.5 L TSH (Reflex) 4.710 H Free T4 1.71 Total T3 1.26 04/01/24 05:31 WBC RBC Hgb Hct MCV MCH MCHC RDW Plt Count MPV Immature Gran % (Auto) Neut % (Auto) Lymph % (Auto) Kemper % (Auto) Eos % (Auto) Baso % (Auto) Lymph # (Auto) Kemper # (Auto) Eos # (Auto) Baso # (Auto) Abs Immat Gran (auto) Absolute Neuts (auto) Absolute Nucleated RBC Nucleated RBC % PT INR APTT Sodium 135 L Potassium 2.6 L* Chloride 99 Carbon Dioxide 38 H Anion Gap -2 L BUN 2 L Creatinine 1.00 Estim Creat Clear Calc 49 Estimated GFR 58 L Glucose 118 H Calcium 7.9 L Magnesium Iron TIBC % Saturation Ferritin Total Bilirubin AST ALT Alkaline Phosphatase Troponin I Total Protein Albumin Lipase Vitamin B12 Folate TSH (Reflex) Free T4 Total T3
== END 2024-04-01 08:32 | disposition left against medical advice (07) | DRG 312 ==
LOC: ANHED 17:19 → ANHIMU 20:15
PROVIDERS: Physician Assistant; Admitting Provider Internal Medicine; Emergency Provider Student in an Organized Health Care Education/Training Program; PCP Family Medicine; Visit Provider Internal Medicine
DX: R55 Syncope and collapse (principal); N17.9 Acute kidney failure, unspecified; E87.1 Hypo-osmolality and hyponatremia; I42.0 Dilated cardiomyopathy; E87.6 Hypokalemia; S01.01XA Laceration without foreign body of scalp, initial encounter; I11.0 Hypertensive heart disease with heart failure; I50.9 Heart failure, unspecified; E03.9 Hypothyroidism, unspecified; E78.5 Hyperlipidemia, unspecified; F31.9 Bipolar disorder, unspecified; I25.2 Old myocardial infarction; Z95.0 Presence of cardiac pacemaker
CPT/HCPCS: 36415; 70450; 71046; 80048; 80053; 82607; 82728; 82746; 83540; 83550; 83690; 83735; 84439; 84443; 84480; 84484; 85025; 85610; 85730; 93005; 96374; 99285; A9270; J3480; J7030; J7040

== ENCOUNTER 2024-04-20 09:01 | Outpatient (CLI) | payer OTHER, SELFPAY ==
[2024-04-20 10:15] LABS: Anion Gap 6 mmol/L (4-12); Blood Urea Nitrogen 9 mg/dL (7-17); Calcium 9.2 mg/dL (8.4-10.2); Carbon Dioxide 22 mmol/L (22-30); Chloride 109 mmol/L (98-107); Estimated Glomerular Filt Rate > 60; Glucose 101 mg/dL (65-110); Potassium 4.1 mmol/L (3.4-5.0); Sodium 137 mmol/L (137-145)
[2024-04-20 10:23] LABS: NT Pro B Type Natriuretic Pept 381 pg/mL (19.9-100)
== END 2024-04-20 09:02 | disposition home or self-care (01) ==
PROVIDERS: PCP Family Medicine; Referring Provider Family Medicine; Visit Provider Nurse Practitioner Adult Health
DX: E87.6 Hypokalemia (principal); I50.9 Heart failure, unspecified; I42.0 Dilated cardiomyopathy
CPT/HCPCS: 36415; 80048; 83880

== ENCOUNTER 2025-01-18 13:23 | Outpatient (CLI) | payer OTHER, SELFPAY ==
--- OUTSIDE RECORDS SUMMARY | 2019-07-21 | XMS_ITS | Encounter Summary ---
Author Organization [facility] Healthcare Address [address] [place] [address] Care Team Providers Care Visual Effects Editor Name Role Phone Christian Rankin MD Primary Care Provider [phone] Reason for Visit * Diagnostic Imaging (Routine) - Closed Specialty Diagnoses / Procedures Referred By Contac t Referred To Contact Procedures Breast Imaging US Outside Reference Referral, Self Referral ID Status Reason Start Date Expiration Date Visits Re quested Visits Authorized [id number] Closed 09/18/2022 10/18/2023 1 1 Encounter Details Date Type Department Care Team (Late st Contact Info) Description 07/21/2019 Hospital Encounter [facility] [address] [place] [id number] Social History Tobacco Use Types Packs/Day Years Used Date Smoking Tobacco: Former Cigarettes Q uit: 04/28/2019 Vaping Passive Smoke Exposure: Past Smokeless Tobacco: Never Comments:previous heavier sm oker, currently 2-3 cig/day Alcohol Use Standard Drinks/Week Comments Not Currently 0 (1 standard drink = 0.6 oz pur e alcohol) Recovering alcoholic AUDIT-C Answer Date Recorded Q1: How often do you have a drink containing alcohol? Never 06/21/2022 Q2: How many drinks containi ng alcohol do you have on a typical day when you are drinking? Patient does not drink 03/16/202 3 Q3: How often do you have si x or more drinks on one occasion? Never 06/21/2022 PHQ-2 Answer Date Recorded PHQ-2 Total Score (If total score is 3 or more points, staff should administer the PHQ-9) 0 10/22/2022 Exercise Vital Sign Answer Date Recorde d On average, how many days pe r week do you engage in moderate to strenuous exercise (like a brisk walk)? 5 days 08/21/2022 On average, how many minutes do you engage in exercise at this level? 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 Never 06/21/2022 10:27 AM CDT Daniel Moctezuma MD Q2: How many drinks containing alcohol do you have on a typical day when you are drinking? Patient does not drink 06/21/2022 10:27 AM CDT Daniel Moctezuma MD Q3: How often do you have six or more drinks on one occasion? Never 06/21/2022 10:27 AM HARRYT Daniel Moctezuma MD documented as of this encounter Plan of Treatment Not on file documented as of this encounter Procedures Procedure Name Priority Date/Time Associated Diagnosis Comments BREAST IMAGING US OUTSIDE REFERENCE Routine 07/21/2019 12:00 AM CDT documented in this encounter Results * Breast Imaging US Outside Reference (07/21/2019 12:00 AM CDT) Impressions [facility] - 09/18/2022 1:34 PM CDT These images are for Reference purposes only and have not been reviewed by [facility] Radiology. There will be no report generated by a [facility] Radiologist. Narrative [facility] - 09/18/2022 1:34 PM CDT EXAMINATION: Images For Reference Purposes Only us Self Referral IMG MAMMO PROCEDURES Final Resul t [facility] documented in this encounter Visit Diagnoses Not on filedocumented in this encounter Care Teams Visual Effects Editor Relationship Specialty Start Date End Date Christian Rankin MD [address] [place] [address] PCP - General Family Medicine 01/12/19 12/26/20 documented as of this encounter
--- OUTSIDE RECORDS SUMMARY | 2019-07-21 00:05 | XMS_ITS | Encounter Summary ---
Author Organization [facility] Healthcare Address [address] [place] [address] Care Team Providers Care Ruby Rails Developer Name Role Phone Christian Rankin MD Primary Care Provider [phone] Reason for Visit * Diagnostic Imaging (Routine) - Closed Specialty Diagnoses / Procedures Referred By Contac t Referred To Contact Procedures Breast Imaging Diagnostic Outside Reference Referral, Self Referral ID Status Reason Start Date Expiration Date Visits Re quested Visits Authorized [id number] Closed 09/18/2022 10/18/2023 1 1 Encounter Details Date Type Department Care Team (Late st Contact Info) Description 07/21/2019 12:05 AM CDT Hospital Encounter [facility]) [address] [place] [id number] Social History Tobacco Use Types Packs/Day Years [...] you are drinking? Patient does not drink 3 Q3: How often do you have [...] drink containing alcohol? Never 06/21/2022 10:27 AM HARRYT Daniel Moctezuma MD Q2: How many drinks containing alcohol do you have on a typical day when you are drinking? Patient does not drink 06/21/2022 10:27 AM HARRYT Daniel Moctezuma MD Q3: How often do you have six or more drinks on one occasion? Never 06/21/2022 10:27 AM HARRYT Daniel Moctezuma MD documented as of this encounter Plan of Treatment Not on file documented as of this encounter Procedures Procedure Name Priority Date/Time Associated Diagnosis Comments BREAST IMAGING MG DIAGNOSTIC OUTSIDE REFERENCE Routine 07/21/2019 12:05 AM CDT documented in this encounter Results * Breast Imaging Diagnostic Outside Reference (07/21/2019 12:05 AM CDT) Impressions [facility] - 09/18/2022 1:34 PM CDT These images are for Reference purposes only and have not been reviewed by [facility] Radiology. There will be no report generated by a [facility] Radiologist. Narrative [facility] - 09/18/2022 1:34 PM CDT EXAMINATION: Images For Reference Purposes Only us Self Referral IMG MAMMO PROCEDURES Final Resul t [facility] documented in this encounter Visit Diagnoses Not on filedocumented in this encounter Care Teams Ruby Rails Developer Relationship Specialty Start Date End Date Christian Rankin MD [address] [place] [address] PCP - General Family Medicine 01/12/19 12/26/20 documented as of this encounter
--- OUTSIDE RECORDS SUMMARY | 2020-04-14 01:00 | XMS_ITS | Encounter Summary ---
Author Organization [facility] Healthcare Address [address] [place] [address] Care Team Providers Care Manager Beauty Name Role Phone Christian Rankin MD Primary Care Provider [phone] Reason for Visit * Diagnostic Imaging (Routine) - Closed Specialty Diagnoses / Procedures Referred By Contac t Referred To Contact Procedures Breast Imaging US Outside Reference Referral, Self Referral ID Status Reason Start Date Expiration Date Visits Re quested Visits Authorized [id number] Closed 09/18/2022 10/18/2023 1 1 Encounter Details Date Type Department Care Team (Late st Contact Info) Description 04/14/2020 Hospital Encounter [facility] [address] [place] [id number] Social History Tobacco Use Types Packs/Day Years [...] Comments BREAST IMAGING US OUTSIDE REFERENCE Routine 04/14/2020 12:00 AM HARNESS REPAIRER documented in this encounter Results * Breast Imaging US Outside Reference (04/14/2020 12:00 AM HARNESS REPAIRER) Impressions [facility] - 09/18/2022 1:34 PM CDT These images are for Reference purposes only and have not been reviewed by [facility] Radiology. There will be no report generated by a [facility] Radiologist. Narrative [facility] - 09/18/2022 1:34 PM CDT EXAMINATION: Images For Reference Purposes Only us Self Referral IMG MAMMO PROCEDURES Final Resul t [facility] documented in this encounter Visit Diagnoses Not on filedocumented in this encounter Care Teams Manager Beauty Relationship Specialty Start Date End Date Christian Rankin MD [address] [place] [address] PCP - General Family Medicine 01/12/19 12/26/20 documented as of this encounter
--- OUTSIDE RECORDS SUMMARY | 2020-04-14 01:05 | XMS_ITS | Encounter Summary ---
Author Organization [facility] Healthcare Address [address] [place] [address] Care Team Providers Care Terminal Operations Manager Name Role Phone Christian Rankin MD Primary Care Provider [phone] Reason for Visit * Diagnostic Imaging (Routine) - Closed Specialty Diagnoses / Procedures Referred By Contac t Referred To Contact Procedures Breast Imaging Diagnostic Outside Reference Referral, Self Referral ID Status Reason Start Date Expiration Date Visits Re quested Visits Authorized [id number] Closed 09/18/2022 10/18/2023 1 1 Encounter Details Date Type Department Care Team (Late st Contact Info) Description 04/14/2020 12:05 AM CHANNEL LIP WETTER Hospital Encounter [facility] [address] [place] [phone] Social History Tobacco Use Types Packs/Day Years [...] of Assessment Author 0 06/21/2022 10:27 AM HARRYT Alexsandra Moctezuma MD * Question Answer Date [...] on one occasion? Never 06/21/2022 10:27 AM Daniel Hernandez MD documented as of this encounter Plan of Treatment Not on file documented as of this encounter Procedures Procedure Name Priority Date/Time Associated Diagnosis Comments BREAST IMAGING MG DIAGNOSTIC OUTSIDE REFERENCE Routine 04/14/2020 12:05 AM CHANNEL LIP WETTER documented in this encounter Results * Breast Imaging Diagnostic Outside Reference (04/14/2020 12:05 AM CHANNEL LIP WETTER) Impressions [facility] - 09/18/2022 1:34 PM CDT These images are for Reference purposes only and have not been reviewed by [facility] Radiology. There will be no report generated by a [facility] Radiologist. Narrative [facility] - 09/18/2022 1:34 PM CDT EXAMINATION: Images For Reference Purposes Only us Self Referral IMG MAMMO PROCEDURES Final Resul t [facility] documented in this encounter Visit Diagnoses Not on filedocumented in this encounter Care Teams Terminal Operations Manager Relationship Specialty Start Date End Date Christian Rankin MD [address] [place] [address] PCP - General Family Medicine 01/12/19 12/26/20 documented as of this encounter
[2025-01-18 14:37] LABS: Hematocrit 41.4 % (37.0-47.0); Hemoglobin 13.8 g/dL (12.0-15.0); Mean Corpuscular HGB Conc 33.3 g/dl (32-36); Mean Corpuscular Hemoglobin 31.8 pg (26-34); Mean Corpuscular Volume 95.4 fl (80-100); Platelet Count Result 189 k/mm3 (150-375); Red Blood Count 4.34 M/mm3 (4.2-5.4); White Blood Count 7.8 K/mm3 (4.5-10.0)
--- OUTSIDE RECORDS SUMMARY | 2025-01-18 14:41 | XMS_ITS | Encounter Summary ---
Author Organization [facility] Healthcare Address [address] [place] [address] Care Team Providers Care Pt Sitter Name Role Phone Benjamin Kaplan MD Unavailable [phone] Lorenzo Joshi MD Unavailable [phone] Hipolito Ureña MD Primary Care Provider [phone] Encounter Details Date Type Department Care Team (Late st Contact Info) Description 03/31/2024 Orders Only [facility] [place] [facility] Information Management [address] [place] [id number] Scanning, Provider Social History Tobacco Use Types Packs/Day Years Used Date Smoking Tobacco: Every Day Vaping Passive Smoke Exposure: Past Smokeless Tobacco: [...] you are drinking? Patient does not drink Q3: How often do you have si [...] on file documented as of this encounter Plan of Treatment Not on file documented as of this encounter Procedures Procedure Name Priority Date/Time Associated Diagnosis Comments SCAN - RADIOLOGY/IMAGING 03/31/2024 SCAN - LABS 03/31/2024 documented in this encounter Results * SCAN - LABS (03/31/2024) us Provider Scanning Final Result * SCAN - RADIOLOGY/IMAGING (03/31/2024) Anatomical Region Laterality Modality Other us Provider Scanning Final Result documented in this encounter Visit Diagnoses Not on filedocumented in this encounter Care Teams Pt Sitter Relationship Specialty Start Date End Date Hipolito Ureña MD [address] [place] [address] PCP - General Family Medicine 12/25/22 Benjamin Kaplan MD [address] [place] [id number] Consulting Physician Cardiology 06/21/22 Lorenzo Joshi MD [address] [place] [address] Referring Physician Psychiatry 06/21/22 documented as of this encounter
--- OUTSIDE RECORDS SUMMARY | 2025-01-18 14:41 | XMS_ITS | Clinical Summary ---
Author Organization [facility] [place] [address] Address [address] [place] [address] Care Team Providers Care Admissions Coordinator Name Role Phone Benjamin Kaplan MD Unavailable Lorenzo Joshi MD Unavailable [phone] Hipolito Ureña MD Primary Care Provider [phone] Allergies Active Allergy Reactions Criticality Noted Date Comments Penicillins Hives Medium 10/31/2016 Medications gabapentin (NEURONTIN) 600 mg tablet Take 1 tablet (600 mg total) by mouth 3 (three) times a day Active cariprazine 6 mg capsule Take 1 capsule (6 mg total) by mouth daily Active PARoxetine (PAXIL) 20 mg tablet Take 1 tablet (20 mg total) by mouth daily 4 Active potassium chloride ER (KLOR-CON) 20 mEq CR tabletIndications:H ypokalemia Take 1 tablet (20 mEq total) by mouth 2 (two) times a day With meals 180 tablet 3 5 04/10/19 26 Active carvediloL (COREG) 12.5 mg tabletIndications:D ilated cardiomyopathy (HCC) Take 1 tablet (12.5 mg total) by mouth 2 (two) times a day with meals 180 tablet 3 5 07/04/19 26 Active furosemide (LASIX) 20 mg tabletIndications:N onischemic cardiomyopathy (HCC) Take 1 tablet (20 mg total) by mouth daily 90 tablet 3 5 Active rosuvastatin (CRESTOR) 10 mg tabletIndications:D ilated cardiomyopathy (HCC) Take 1 tablet (10 mg total) by mouth daily 90 tablet 3 5 07/04/19 26 Active sacubitriL-valsarta n (ENTRESTO) 24-26 mg tabletIndications:c hronic heart failure Take 1 tablet by mouth 2 (two) times a day 180 tablet 3 5 07/04/19 26 Active Active Problems Problem Noted Date Diagnosed Date Encounter to establish care with new doctor 06/06 Assessment & Plan (06/23/2022 2:25 PM CDT): Awaiting labs Discussed GLP-1 med's (Gerardo, John, etc). I want to review the labs first prior to considering Continue good efforts, they are paying off right now even if the weight is not shifting quite yet. Awaiting records Class 1 obesity due to exces s calories with serious comorbidity and body mass index (BMI) of 34.0 to 34.9 in adult 06/23/2022 Assessment & Plan (10/22/2022 11:49 AM CDT): BMI Follow-up includes: nutrition counseling, exercise counseling, and education provided. Assessment & Plan (08/21/2022 8:40 AM CDT): BMI Follow-up includes: nutrition counseling, exercise counseling and education provided. down 6 lbs since last visit, only had John for 3 of 4 weeks (mishap with the syringe this past week) she has been exercising more as well, eating better Discussed signing up for John Benign hypertension 06/21/2022 Assessment & Plan (07/28/2022 2:20 PM CDT): We can consider Mounjaro as long as intake is more approximate to healthy intake; watch for abdominal pain, prolonged diarrhea, low sugars, vomiting. Continuing current regimen Discussed risks (I.e. pancreatitis, GI problems, rash, low blood sugar) ADHD 11/16/2020 Alcohol abuse, in remission 11/16/2020 Bipolar disorder, current episode mixed, moderat e 11/16/2020 Cocaine use disorder in remission 11/16/2020 Cardiac resynchronization th erapy defibrillator (SPIDER ASSEMBLER-D) in place 06/10/2020 Overview (01/14/2025): Medtronic Claria MRI Quad SPIDER ASSEMBLER-D implanted on 06/10/20 for NICM/CHF/LBBB. Joselyn - [facility] 01/14/2025-patient transferred to [facility]. jr Congestive heart failure 05/24/2020 NICM (nonischemic cardiomyopathy) 05/20/2020 Overview (05/20/2020): Added automatically from request for surgery [id number] Assessment & Plan (05/24/2020 12:31 PM MULTI NEEDLE MACHINE OPERATOR): Nonischemic cardiomyopathy, associated with severe LV dysfunction and new York Heart Association class 2 symptoms. I recommended that the patient consider placement of a defibrillator for the primary prevention of sudden cardiac arrest. I explained the rationale for this recommendation, as well as the risks and benefits. Because of her left bundle branch block, the patient should also undergo concurrent placement of an LV pacing lead for cardiac resynchronization therapy. My office will make the appropriate arrangements. From: Patience AE, Earline ESTHELA, Misty KA, Daniel LARKIN III, Ilya RA, Dre LS, Chad AM, Alon G, Gaurav SC, Blas DL, Lucretia MA, Sandi LK, Olivia RL, Jade MH, Leigh MJ, Tesfaye LW, Liberty HUNTER. ACC/AHA/HRS 2008 guidelines for device-based therapy of cardiac rhythm abnormalities: a report of the [place] College of Cardiology/[place] Heart Association Task Force on Practice Guidelines (Writing Committee to Revise the ACC/AHA/NASPE 2002 Guideline Update for Implantation of Cardiac Pacemakers and Antiarrhythmia Devices). J Am Eliseo Cardiol 2008;51:e1- 62. Class I: ICD therapy is indicated in patients with nonischemic DCM who have an LVEF less than or equal to 35% and who are in NYHA functional Class II or III. (Level of Evidence: B) From: Patience AE, Earline ESTHELA, Misty KA, Daniel LARKIN III, Ilya RA, Dre LS, Chad AM, Alon G, Gaurav SC, Blas DL, Lucretia MA, Sandi LK, Olivia RL, Jade MH, Leigh MJ, Tesfaye LW, Liberty HUNTER 2012 ACCF/AHA/HRS focused update incorporated into the ACCF/AHA/HRS 2008 guidelines for device-based therapy of cardiac rhythm abnormalities: a report of the [place] College of Cardiology Foundation/[place] Heart Association Task Force on Practice Guidelines and the Heart Rhythm Society. J Am Eliseo Cardiol 2013;61:e6-75. Class I: SPIDER ASSEMBLER is indicated for patients who have LVEF less than or equal to 35%, sinus rhythm, LBBB with a QRS duration greater than or equal to 150 ms, and NYHA class II, (546,547) III, or ambulatory IV (542-545); symptoms on GDMT. (Level of Evidence: A for NYHA class III/IV; Level of Evidence: B for NYHA class II) LBBB (left bundle branch block) 01/12/2019 History of bipolar disorder 01/12/2019 Dilated cardiomyopathy 01/12/2019 Generalized anxiety disorder 11/01/2016 Severe manic bipolar I disorder with psychotic f eatures 11/01/2016 Tobacco use 11/01/2016 Encounters Date Type Department Care Team Description 01/13/2025 8:30 AM CDT Ancillary Procedure [facility] Cardiology [address] [place] [id number] Other congestive heart failure; NICM (nonischemic cardiomyopathy) (HCC); LBBB (left bundle branch block); Cardiac resynchronization therapy defibrillator (SPIDER ASSEMBLER-D) in place from Last 3 Months Immunizations Immunization Administration Dates Next Due Influenza, Quadrivalent, Spl it, Preservative Free, Intramuscular 01/30/2022,12/29/2020 Influenza, Unspecified 04/08/2022(Deferr ed: Patient Refused),04/08/2021(Deferred: Patient Refused) Tdap 06/21/2022 ZOSTER Recombinant 05/04/2022,01/30/2022 Surgical History Surgery Date Site/Laterality Comments SECTION HYSTERECTOMY cervix taken ABDOMINAL SURGERY [id number] CHOLECYSTECTOMY 2022 Medical History Medical History Date Comments Cardiomyopathy Bipolar 1 disorder (HCC) Alcohol abuse Anxiety Depression Heart disease Substance abuse (HCC) Alcohol abuse, in remission 11/16/2020 Family History Medical History Relation Name Comments Alcohol abuse Brother 1 Benjamin Woodruff Sr Aortic aneurysm Brother 1 Benjamin Woodruff Sr thoracic Hypertension Brother 1 Benjamin Woodruff Sr Alcohol abuse Brother 2 Aric Woodruff Drug abuse Brother 2 Aric Woodruff Heart attack Brother 2 Aric Woodruff Heart disease Brother 2 Aric Woodruff Hypertension Brother 2 Aric Woodruff Mental illness Brother 2 Aric Woodruff Mental illness Brother 3 Ramesh Tad Abdominal Aortic Aneurysm Father Aakash Jadon Alcohol abuse Father Aakash Jadon Diabetes Father Aakash Jadon Heart failure Father Aakash Jadon Colon cancer Maternal Grandfather [place] Burrous Heart failure Maternal Grandmother Wandell Arthritis Mother Tanisha Jadon COPD Mother Tanisha Jadon Cardiomyopathy Mother Tanisha Jadon Depression Mother Tanisha Jadon Diabetes Mother Tanisha Jadon Heart attack Mother Tanisha Jadon Heart disease Mother Tanisha Jadon Hypertension Mother Tnaisha Jadon Mental illness Mother Tanisha Jadon Obesity Mother Tanisha Jadon Stroke Mother Tanisha Jadon Crohn's disease Mother's Sister Tatum Cancer Paternal Grandfather Tony Burrous Alzheimer's disease Paternal Grandmother Wandell Neville Alcohol abuse Sister 1 Vanesas Spencer COPD Sister 1 Vanessa Spencer Cancer Sister 1 Vanessa Spencer Depression Sister 1 Vanessa Spencer Drug abuse Sister 1 Vanessa Mayda Mental illness Sister 1 Vanessa Mayda Alcohol abuse Sister 2 Abida Mishra Depression Sister 2 Abida Mishra Drug abuse Sister 2 Abida Mishra Mental illness Sister 2 Abida Mishra Depression Sister 3 [place] Mishra Hypertension Sister 3 Cony Mishra Mental illness Sister 3 Con[place] Mishra Obesity Sister 3 Cony Mishra Vision loss Sister 3 Cony Mishra Relation Name Status Comments Brother 1 Benjamin Woodruff Sr Alive Brother 2 Aric Woodruff Alive Brother 3 Ramesh Mishra Alive Father Aakash Jadon (Age 69) Maternal Grandfather Tony Burrous Maternal Grandmother [place]andell Mother Tanisha Jadon (Age 72) Mother's Sister Tatum Paternal Grandfather Tony Pena Paternal Grandmother Omari Neville Sister 1 Vanessa Ohara Alive Sister 2 Abida Mishra Alive Sister 3 Cony Mishra Alive Social History Tobacco Use Types Packs/Day Years [...] file Not on file Not on file Obstetrics History Last Filed Vital Signs Vital Sign Reading Time Taken Comments Blood Pressure 104/64 07/03/2024 10:09 AM CDT Pulse 74 07/03/2024 10:09 AM CDT Temperature 36.7 C (98 F) 08/21/2022 8:07 AM CDT Respiratory Rate 18 10/22/2022 11:31 AM CDT Oxygen Saturation 98% 07/03/2024 10:09 AM CDT Inhaled Oxygen Concentration - - Weight 68 kg (150 lb) 07/03/2024 10:09 AM CDT Height 160 cm (5' 3) 07/03/2024 10:09 AM CDT Body Mass Index 26.57 07/03/2024 10:09 AM CDT Plan of Treatment Health Maintenance Due Date Last Done Comments Breast Cancer Screening-Mammogram 1973 Colon Cancer Screening-Colonoscopy 1973 Hepatitis C Screening 1973 Hepatitis B Screening 1991 Regular Well Visit/Exam 18-64 1991 Zoster Vaccine (2 of 2) 2023 05/04/2022, 01/30 Depression Screening 10/23/2023 10/22/2022, 08/21/2022, 07/24/2022, Additional history exists Covid-19 Vaccine ( season) 2024 02/03/2021, 01/13/2021 Influenza Vaccine (#1) 2024 01/30/2022, 2020 DTaP/Tdap/Td Vaccine (2 - Td or Tdap) 06/21/2032 06/21/2022 Pneumococcal vaccine <65 Aged Out No longer eligible based on patient's age to complete this topic Medical Devices Implanted Type Area Electronics Technology Department Chair Device Identifier Shelf Expiration Date Model / Serial / Lot Medtronic Inc [id number] Claria Mri Biphasic Wave Defibrillator 35 Cc Cardiac - [id number] - [id number] Implanted:Qty: 1 on 06/10/2020 by Jonathan Alves MD at [facility] ICD Medtronic Inc [id number] 11/02/2021 DTM [id number] / [id number] / Medtronic Cardiac Rhythm Mgmt [id number] Sprint Quattro Secure S 55cm Df-4 Tripolar Screw Defibrillator - [id number] - [id number] Implanted:Qty: 1 on 06/10/2020 by Jonathan Alves MD at [facility] Lead Medtronic Inc [id number] 02/03/2022 [id number] / [id number] / Medtronic Cardiac Rhythm Mgmt 5076-45 Capsurefix Novus 6.2fr 2mm 45cm Bipolar Screw In Implantable - [id number] - [id number] Implanted:Qty: 1 on 06/10/2020 by Jonathan Alves MD at [facility] Lead Medtronic Inc [id number] 02/04/2022 507 6-45 / [id number] / Medtronic Inc [id number] Lead Attain Stability Quad Mri Surescan Lv 88mm - [id number] - [id number] Implanted:Qty: 1 on 06/10/2020 by Jonathan Alves MD at [facility] Lead Medtronic Inc [id number] 03/09/2022 [id number] / [id number] / Insurance [facility] Care Teams Admissions Coordinator Relationship Specialty Start Date End Date Hipolito Ureña MD [address] [facility] [address] [place] [address] PCP - General Family Medicine 12/25/22 Benjamin Kaplan MD [address] [address] Consulting Physician Cardiology 06/21/22 Lorenzo Joshi MD [address] [facility] [address] [place] [address] Referring Physician Psychiatry 06/21/22
--- OUTSIDE RECORDS SUMMARY | 2025-01-18 14:41 | XMS_ITS | Clinical Summary ---
Author Organization [facility] Address [address] [place] [address] Phone Care Team Providers Care Surveillance Supervisor Name Role Phone Maritza Montano MD Primary Care Provider [phone] Allergies Active Allergy Reactions Criticality Noted Date Comments Penicillins Hives High 10/31/2016 Medications traZODone (DESYREL) 100 mg tablet Take 1 Tablet (100 mg) by mouth nightly as needed for Insomnia. 30 Tablet 11/02/2016 Active lamotrigine (LAMICTAL ORAL) Take 200 mg by mouth daily. Active HYDROXYZINE PAMOATE ORAL Take 50 mg by mouth 3 times daily as needed. Active sacubitril/vals mirtha (ENTRESTO ORAL) Take 97-103 mg by mouth 2 times daily. Active CARVEDILOL ORAL Take 12.5 mg by mouth 2 times daily. BID With meals Active lansoprazole (PREVACID ORAL) Take by mouth. Active acetaminophen (TYLENOL ORAL) Take by mouth. Active cariprazine (Vraylar) 4.5 mg Capsule capsule Take 4.5 mg by mouth daily. Active furosemide (LASIX) 20 mg tablet Take 20 mg by mouth daily. Active rosuvastatin (CRESTOR) 10 mg tablet Take 10 mg by mouth daily. Active nicotine (NICODERM CQ) 21 mg/24 hr patch Apply 1 Patch to skin as directed every 24 hours. 30 Patch 11/17/2020 Active Active Problems Problem Noted Date Diagnosed Date Cocaine abuse 11/16/2020 Alcohol use disorder, moderate, dependence 11/16 ADHD 11/16/2020 Bipolar disorder, current episode mixed, moderat e 11/16/2020 Tobacco use 11/01/2016 Severe manic bipolar I disorder with psychotic f eatures 11/01/2016 Generalized anxiety disorder 11/01/2016 Benign hypertension Routine general medical exam ination at a health care facility Family History Medical History Relation Name Comments ADHD Daughter Tamara Menezes Heart Disease Mother Hypertension Mother Stroke Mother ADHD Sister Vanessa Ohara ADHD Son Aakash Del Rosario Relation Name Status Comments Daughter Tamara Menezes Alive Borderline p ersonality disorder Father ETOH abuse Mother Sister Vanessa Ohara Biploar Son Aakash Del Rosario Alive Social History Tobacco Use Types Packs/Day Years Used Date Smoking Tobacco: Every Day Cigarettes 2 30 Smokeless Tobacco: Never Tobacco Cessation:Ready to Q uit: Yes Alcohol Use Standard Drinks/Week Comments Yes 0 (1 standard drink = 0.6 oz pur e alcohol) 4 years sober Comments No Sex and Gender Information Value Date Recorded Sex Assigned at Not on file Legal Sex Female 7:22 PM CDT Gender Identity Not on file Sexual Orientation Not on file Occupation Industry Job Start Date Job End Date 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 Not on file Not on file Not on file Last Filed Vital Signs Vital Sign Reading Time Taken Comments Blood Pressure 102/57 06/11/2021 2:57 PM EXTRACTING MACHINE OPERATOR Pulse 81 06/11/2021 2:57 PM EXTRACTING MACHINE OPERATOR Temperature 36.5 C (97.7 F) 06/11/2021 2:57 PM EXTRACTING MACHINE OPERATOR Respiratory Rate 18 06/11/2021 2:57 PM EXTRACTING MACHINE OPERATOR Oxygen Saturation 98% 06/11/2021 2:57 PM EXTRACTING MACHINE OPERATOR Inhaled Oxygen Concentration - - Weight 84 kg (185 lb 3 oz) 06/11/2021 11:[address] Height 162.6 cm (5' 4) 06/11/2021 11:26 AM EXTRACTING MACHINE OPERATOR Body Mass Index 31.79 06/11/2021 11:26 AM EXTRACTING MACHINE OPERATOR Plan of Treatment Health Maintenance Due Date Last Done Comments DTAP/TDAP/TD VACCINES (1 - Tdap) 02/11/1992 HEPATITIS B VACCINES (1 of 3 - 19+ 3-dose series) 08/1991 HPV/Cotest (21-29) 1994 CERVICAL CANCER SCREENING 2003 HPV/Cotest (30-65) 2003 PAP SMEAR 2003 BREAST CANCER SCREENING 2013 COLORECTAL SCREENING 2018 Colorectal Cancer Screening 2018 FIT-DNA Q 3 years 2018 FIT/FOBT Q 1 year 2018 Flex Sig/CT Colonography Q 5 years 2018 ZOSTER VACCINE (1 of 2) 2023 INFLUENZA VACCINE (#1) 2024 Insurance POS II POS II Advance Directives For more information, please contact: [phone] * Full Code (Latest Code Status on File) Date Activated Date Inactivated Comments 11/15/2020 5:53 PM 11/17/2020 3:35 PM * Full Code Date Activated Date Inactivated Comments 10/31/2016 11:43 PM 11/02/2016 3:23 PM Care Teams Surveillance Supervisor Relationship Specialty Start Date End Date Maritza Montano MD [address] [place] [id number] PCP - General Family Practice 11/14/20
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
[2025-01-18 14:57] LABS: Hemoglobin A1C 5.0 % (<5.7)
[2025-01-18 15:08] LABS: Alanine Aminotransferase 16 U/L (6-35); Albumin Level 4.1 g/dL (3.5-5.1); Alkaline Phosphatase 123 U/L (38-126); Anion Gap 7 mmol/L (4-12); Aspartate Amino Transferase 27 U/L (14-36); Bilirubin,Total 0.4 mg/dL (0.2-1.3); Blood Urea Nitrogen 3 mg/dL (7-17); Calcium 9.2 mg/dL (8.4-10.2); Carbon Dioxide 25 mmol/L (22-30); Chloride 105 mmol/L (98-107); Cholesterol 184 mg/dL (0-200); Estimated Glomerular Filt Rate 53; Glucose 84 mg/dL (65-110); HDL Direct 34 mg/dL; Potassium 3.5 mmol/L (3.4-5.0); Sodium 137 mmol/L (137-145); Total Protein 7.5 g/dL (6.3-8.2); Triglycerides 148 mg/dL (<150)
[2025-01-18 15:12] LABS: NT Pro B Type Natriuretic Pept 34 pg/mL (19.9-100)
[2025-01-18 15:23] LABS: Thyroid Stimulating Hormone Reflex 3.210 uIU/mL (0.465-4.68)
== END 2025-01-18 13:24 | disposition home or self-care (01) ==
LOC: ANHLAB 13:26
PROVIDERS: PCP Family Medicine; Visit Provider Internal Medicine
DX: I50.43 Acute on chronic combined systolic (congestive) and diastolic (congestive) heart failure (principal)
CPT/HCPCS: 36415; 80053; 80061; 83036; 83880; 84443; 85027